=== PATIENT | female | born 1980 | race Caucasian/White ===

== ENCOUNTER 2016-08-06 18:10 | Emergency (ER) | payer OTHER ==
[~2016-08-06] VITALS: Ht 170.2 cm; Wt 89.9 kg
[2016-08-06 18:13] VITALS: Ht 170.2 cm; Wt 89.9 kg
[2016-08-06] MEDS ORDERED: IBUPROFEN 800 MG TAB PO ONE (19:00)
[2016-08-06] MEDS ORDERED: CIPROFLOXACIN 500 MG TAB PO ONE (19:00)
[2016-08-06 19:13] LABS: URINE BLOOD (Dip) POC 1+ (NEGATIVE)
[2016-08-06] MEDS ORDERED: ONDANSETRON (ODT) 4 MG TAB ODT STA (19:38)
[2016-08-06] MEDS ORDERED: HYDROCODONE/APAP (10/325) TAB PO ONE (20:00)
--- NOTE | 2016-08-06 21:20 | RADRPT ---
PROCEDURE: CT Abdomen and Pelvis without contrast. CLINICAL INDICATION: Left flank pain. TECHNIQUE: CT scan of the abdomen and pelvis was performed on a multidetector slice CT scanner. N o intravenous contrast material was utilized. Sagittal and coronal reformatted images were obtained from the axial source images. Images were reviewed on a high-resolution PACS workstation. Exam CTDl vol = 22 mGy and DLP = 1256 Gy-cm. COMPARISON: Right upper quadrant ultrasound 11/12/2012 FINDINGS: There to punctate nonobstructing calcifications in the lower pole of the right kidney. Kidneys are otherwise normal in appearance without hydronephrosis, mass or obstructing calculus. There is no pe rinephric collection. Ureters are of normal caliber and without evidence for an obstructing calculu s The urinary bladder is unremarkable. Uterus and ovaries are unremarkable. The liver is enlarged at 26.2 cm and diffusely hypodense/fatty. No intrahepatic lesions are identif ied. The gallbladder is normal in appearance. There is no definite biliary ductal dilation. There i s mild infiltration of fluid adjacent to the pancreatic tail. There are adjacent mesenteric lymph n odes measuring up to 7 mm in diameter.. The spleen is unremarkable.. There are no adrenal masses. The aorta is unremarkable. There is no obstruction or ileus. The appendix is well visualized and normal in size. There is no evidence for diverticulitis. There is no free fluid. Limited evaluation lung bases unremarkable. There are degenerative changes of the lower thoracic spine. IMPRESSION: 1. No evidence for obstructive uropathy. Punctate nonobstructing right renal calcifications. 2. Slightly indistinct pancreatic tail mild surrounding infiltration and adjacent mesenteric lymph nodes. Appearances consistent with acute pancreatitis. No evidence for a phlegmon or pseudocyst. 3. Enlarged fatty liver. RPTAT: [facility]VK .Jordi Goddard MD, Date Time Electronically viewed and signed by .Jordi Goddard MD, on 08/06/2016 21:19 .K/
[2016-08-06] MEDS ORDERED: HYDR-902 PO (21:26)
[2016-08-06] MEDS ORDERED: IBUP-1542 PO (21:26)
--- NOTE | 2016-08-06 21:37 | ERD ---
ER Documentation Chief Complaint Date/Time DATE: 08/06/16 TIME: 21:35 Chief Complaint BACK PAIN WITH URGENCY TO URINATE, DYSURIA X 2 DAYS HPI Patient is a 35-year-old female with diabetes who presents with left-sided back pain. She has left lower quadrant abdominal pain as well. She says that she is supposed to take metformin but she has not been on her medicines for diabetes for about 1 month. She says that she has the medicines at home she just thought that she was better and did not need to take them anymore. Upon review of the old medical records this is the patient's seventh visit to the ER since 2008. She does have a primary doctor. ROS All systems reviewed and are negative except as per history of present illness. Medications Home Meds Active Scripts Hydrocodone/Acetaminophen ([place] 10-325 Tablet) 1 Each Tablet, 1 TAB PO Q6H Y for PAIN, #7 TAB Prov:DANIEL BRIONES MD 08/06/16 Ibuprofen* (Motrin*) 600 Mg Tab, 600 MG PO Q6H Y for PAIN AND OR ELEVATED TEMP, #30 TAB Prov:DANIEL BRIONES MD 08/06/16 Reported Medications [None] No Conflict Check 10/30/10 Allergies Allergies: Coded Allergies: No Known Allergy (Verified Allergy, Mild, 01/26/10) PMhx/Soc Medical and Surgical Hx: pt denies Medical Hx, pt denies Surgical Hx History of Surgery: Yes () Anesthesia Reaction: No Hx Neurological Disorder: No Hx Respiratory Disorders: No Hx Cardiac Disorders: No Hx Psychiatric Problems: No Hx Miscellaneous Medical Probl: No Hx Alcohol Use: No Hx Substance Use: No Hx Tobacco Use: No Smoking Status: Never smoker FmHx Family History: No diabetes Physical Exam Vitals Vital Signs Date Time Temp Pulse Resp B/P Pulse Ox O2 Delivery O2 Flow Rate FiO2 08/06/16 18:13 97.5 99 18 133/71 99 Physical Exam Const: Mild distress secondary to pain Head: Atraumatic Eyes: Normal Conjunctiva ENT: Normal External Ears, Nose and Mouth. Neck: Full range of motion..~ No meningismus. Resp: Clear to auscultation bilaterally Cardio: Regular rate and rhythm, no murmurs Abd: Soft, left lower quadrant tenderness to palpation without rebound or guarding Skin: No petechiae or rashes Back: Left-sided flank pain Ext: No cyanosis, or edema Neur: Awake and alert Psych: Normal Mood and Affect Results 24 hrs Laboratory Tests Test 08/06/16 19:14 08/06/16 19:19 Bedside Urine Blood 1+ Bedside Urine Glucose (UA) Negative Bedside Urine Ketones (LAB) Negative Bedside Urine Leukocyte Esterase (L Negative Bedside Urine Nitrite (LAB) Negative Bedside Urine Protein (LAB) 1+ Bedside Urine pH (LAB) 5.5 Bedside Glucose 193mg/dL Current Medications Medications (Trade) Dose Ordered Sig/Ruth Route PRN Reason Start Time Stop Time Status Last Admin Dose Admin Ibuprofen (Motrin) 800 mg ONCE ONCE PO 08/06/16 19:00 08/06/16 19:01 DC 08/06/16 19:15 Ciprofloxacin (Cipro) 500 mg ONCE ONCE PO 08/06/16 19:00 08/06/16 19:01 DC 08/06/16 19:15 Acetaminophen/ Hydrocodone Bitart ([place] (10/325)) 1 tab ONCE ONCE PO 08/06/16 20:00 08/06/16 20:01 DC 08/06/16 19:46 Ondansetron HCl (Zofran Odt) 4 mg ONCE STAT ODT 08/06/16 19:38 08/06/16 19:39 DC 08/06/16 19:46 Procedures/MDM Accu-Chek is less than 200. Urinalysis shows no sign of infection. CT scan shows no surgical process per radiology. There is a potential pancreatitis but symptoms are not consistent with that. Smoking Cessation Therapy: Pt. was lectured for greater than 3 minutes on the health risks of continued smoking and the benefits of cessation. Patient is a 35-year-old female who presents with left lower quadrant abdominal pain and left-sided flank pain. Urinalysis shows no sign of infection. She is not and I doubt or ectopic . CT scan shows no surgical process although it shows some mild pancreatic inflammation. However at this time her symptoms are not consistent with pancreatitis and I doubt pancreatitis. I believe outpatient management is appropriate as there is no sign of kidney stone or pyelonephritis. There is no sign of bowel obstruction. The patient will need close follow-up with her primary doctor tomorrow for evaluation. She will be given a prescription for Gl[place] and ibuprofen. She can return sooner for any worsening symptoms. She was given a copy of her laboratory studies and CT scan report prior to discharge. I doubt diabetic ketoacidosis at this time as her sugar is less than 200. I did tell her that she needs to start taking her Metformin again however. Departure Diagnosis: Primary Impression: Flank pain Additional Impression: Back pain Back pain location: low back pain Chronicity: acute Back pain laterality: left Sciatica presence: without sciatica Qualified Code: M54.5 - Acute left- sided low back pain without sciatica Condition: Fair Patient Instructions: Flank Pain, Uncertain Cause Additional Instructions: Call your primary care doctor TOMORROW for an appointment during the next 1-2 days.See the doctor sooner or return here if your condition worsens before your appointment time. DANIEL BRIONES MD Aug 06, 2016 21:36
[2016-08-06 21:39] VITALS: BP 118/74; PULSE 99; RESP 18; TEMP 98.2
== END 2016-08-06 21:40 | disposition home or self-care (01) ==
LOC: FTE 18:10
DX: R10.32 Left lower quadrant pain (principal); M54.5 Low back pain; E11.9 Type 2 diabetes mellitus without complications; Z79.84 Long term (current) use of oral hypoglycemic drugs
CPT/HCPCS: 74176; 81003; 82962; Z7502; Z7610

== ENCOUNTER 2016-12-23 19:41 | Inpatient (IN) | payer OTHER ==
[~2016-12-23] VITALS: Ht 170.2 cm; Wt 105.6 kg
[~2016-12-23 19:41] MED LIST: HYDR-902 PO; IBUP-1542 PO
[2016-12-23 22:42] VITALS: BP 134/64; PULSE 85; RESP 18
[2016-12-23 23:00] VITALS: Ht 170.2 cm; Wt 105.6 kg
[2016-12-24] MEDS ORDERED: DEXTROSE 50% 50 ML SYRINGE IV PRN ×2 (00:30)
[2016-12-24] MEDS ORDERED: GLUCAGON 1 MG INJ IM PRN (00:30)
[2016-12-24] MEDS ORDERED: ACETAMINOPHEN 325 MG TAB PO PRN (00:30)
[2016-12-24] MEDS ORDERED: ONDANSETRON 4 MG INJ IV PRN (00:30)
[2016-12-24] MEDS ORDERED: SOD CHLORIDE 0.9% 1,000 ML IV SCH (00:30)
[2016-12-24] MEDS ORDERED: GLUCOSE GEL 15 GRAM TUBE PO PRN ×2 (00:30)
[2016-12-24] MEDS ORDERED: morphine 2 MG INJ IV PRN (00:30)
[2016-12-24] MEDS ORDERED: GLUCOSE GEL 15 GRAM TUBE BUCCAL PRN (00:30)
[2016-12-24] MEDS: SOD CHLORIDE 0.45% 1,000 ML IV SCH ×2 (00:46→22:15)
[2016-12-24] MEDS: morphine 2 MG INJ IV PRN ×3 (01:31→12:23)
[2016-12-24] MEDS: ACCU-CHEK XX SCH (02:00)
[2016-12-24 05:31] LABS: ADD SCAN DIFF NO
[2016-12-24] MEDS: PANTOPRAZOLE 40 MG INJ IV SCH (05:53)
[2016-12-24 05:59] LABS: BASOPHIL # 0.1 10^3/ul (0.0-0.1); BASOPHILS % 0.3 % (0.0-2.0); EOSINOPHILS # 0.1 10^3/ul (0.0-0.5); EOSINOPHILS % 0.6 % (0.0-7.0); HEMATOCRIT 35.8 % (37.0-47.0); HEMOGLOBIN 13.4 g/dl (12.0-16.0); LYMPHOCYTES # 3.3 10^3/ul (0.8-2.9); LYMPHOCYTES % 23.2 % (15.0-51.0); MEAN CORPUSCULAR HEMOGLOBIN 33.6 pg (29.0-33.0); MEAN CORPUSCULAR HGB CONC 37.4 g/dl (32.0-37.0); MEAN CORPUSCULAR VOLUME 89.7 fl (82.0-101.0); MEAN PLATELET VOLUME 12.7 fl (7.4-10.4); MONOCYTES % 7.1 % (0.0-11.0); NEUTROPHIL # 9.8 10^3/ul (1.6-7.5); NEUTROPHILS % 68.5 % (39.0-77.0); PLATELET COUNT 189 10^3/UL (140-415); RED BLOOD COUNT 3.99 10^6/ul (4.20-5.40); RED CELL DISTRIBUTION WIDTH 11.9 % (11.5-14.5); WHITE BLOOD COUNT 14.4 10^3/ul (4.8-10.8)
[2016-12-24 06:19] LABS: ALBUMIN 4.1 g/dl (3.3-4.9); ALBUMIN/GLOBULIN RATIO 1.46; BILIRUBIN,INDIRECT 1.8 mg/dl (0-1.1); BILIRUBIN,TOTAL 1.8 mg/dl (0.2-1.3); CREATININE 0.53 mg/dl (0.44-1.00); POTASSIUM 3.8 mmol/L (3.5-5.1); TOTAL PROTEIN 6.9 g/dl (6.1-8.1)
[2016-12-24 08:21] VITALS: BP 107/54; RESP 18
[2016-12-24] MEDS: NICOTINE (21 MG/24 HR) PATCH TRANSDERM SCH (08:27)
[2016-12-24] MEDS: INSULIN ASPART [NOVOLOG] 3 ML PEN SC SCH ×4 (09:09→21:00)
[2016-12-24 12:43] VITALS: BP 121/62; PULSE 83; RESP 16
--- NOTE | 2016-12-24 16:10 | HP ---
Date/Time of Note Date/Time of Note DATE: 12/24/16 TIME: 16:01 Assessment/Plan VTE Prophylaxis VTE Prophylaxis Intervention: ambulation Lines/Catheters IV Catheter Type (from [facility]): [facility] Urinary Cath still in place: No Assessment/Plan Chief Complaint/Hosp Course 1. Acute pancreatitis 2. Diabetes mellitus type II, uncontrolled 3. Morbid obesity 4. Nicotine dependence 5. Non compliance 6. HS high cholesterol 7. On CT Right 3 mm kidney stone Problems: Assessment/Plan 1. NPO, pain control 2. Continue iv therapy 3. Dr Weldon for Gi Consult 4. Dr Carr for high WBC HPI/ROS Admit Date/Time Admit Date/Time Dec 23, 2016 at 22:09 Hx of Present Illness On 12/23/2016 pt woke up with severe flank pain and abdominal pain. She vomited a bile. She was seen in [facility]. There CT scan was obtained. 12/24/2016 pt was transferred to [facility] covered by pt insurance . ROS Constitutional: fatigue Eyes: no complaints ENT: no complaints Respiratory: no complaints Cardiovascular: no complaints Gastrointestinal: pain (8/10 in left epigastial area.) Musculoskeletal: no complaints Skin: no complaints Neurologic: no complaints Endocrine: no complaints Lymphatic: no complaints Psychological: no complaints PMH/Family/Social Past Medical History Medical History: diabetes (pt is noncomliant with meds), high cholesterol (pt is non compliant), other (obesity) Past Surgical History Past Surgical Hx: other (C section 2000 and 2011) Family History Significant Family History: diabetes, hypertension Social History Alcohol Use: none Smoking Status: Current every day smoker Drug Use: none Exam/Review of Systems Vital Signs Vitals Vital Signs Date Time Temp Pulse Resp B/P Pulse Ox O2 Delivery O2 Flow Rate FiO2 12/24/16 12:43 99.2 83 16 121/62 95 Room Air Intake and Output 12/23/16 12/23/16 12/24/16 14:59 22:59 06:59 Intake Total 705 ml Balance 705 ml Exam Constitutional: alert, oriented Psych: nl mood/affect, no complaints Head: normocephalic Eyes: nl conjunctiva ENMT: nl external ears & nose Neck: non-tender, supple Respiratory: clear to auscultation, normal air movement Cardiovascular: regular rate and rhythm Gastrointestinal: ascites, bowel sounds (present), distended, firm, hepatomegaly, mass, nl liver, spleen, non-tender, other (pain in left epigastrial area), rebound or guarding, soft, splenomegaly, surgical scars, tender Genitourinary - Female: nl external genitalia Musculoskeletal: nl extremities to inspection Extremities: normal pulses Skin: nl turgor Lymph: nl lymph nodes Labs Result Diagram: 12/24/16 0453 12/24/16 0453 Medications Medications Current Medications Pantoprazole (Protonix Iv) 40 mg DAILY@06 IV Last administered on 12/24/16 05: 53; Admin Dose 40 MG; Start 12/24/16 at 06:00 Acetaminophen (Tylenol Tab) 650 mg Q6H PRN PO PAIN AND OR ELEVATED TEMP Last administered on 12/24/16 05:58; Admin Dose 650 MG; Start 12/24/16 at 00:30 Ondansetron HCl (Zofran Inj) 4 mg Q6 PRN IV NAUSEA AND/OR VOMITING; Start at 00:30 Nicotine (Nicoderm 21 Mg/ 24hr) 1 patch DAILY TRANSDERM Last administered on 08:27; Admin Dose 1 PATCH; Start 12/24/16 at 09:00 Diagnostic Test (Pha) (Accu-Chek) 1 ea 02 XX ; Start 12/24/16 at 02:00 Miscellaneous Information 1 ea NOTE XX ; Start 12/24/16 at 00:30 Glucose (Glutose) 15 gm Q15M PRN PO DECREASED GLUCOSE; Start 12/24/16 at 00:30 Glucose (Glutose) 22.5 gm Q15M PRN PO DECREASED GLUCOSE; Start 12/24/16 at 00:30 Dextrose (D50w Syringe) 25 ml Q15M PRN IV DECREASED GLUCOSE; Start 12/24/16 at 00:30 Dextrose (D50w Syringe) 50 ml Q15M PRN IV DECREASED GLUCOSE; Start 12/24/16 at 00:30 Glucagon (Glucagen) 1 mg Q15M PRN IM DECREASED GLUCOSE; Start 12/24/16 at 00:30 Glucose 15 gm 15 gm Q15M PRN BUCCAL DECREASED GLUCOSE; Start 12/24/16 at 00:30 Sodium Chloride (1/2 NS) 1,000 ml @ 50 mls/hr Q20H IV Last administered on 12/24 00:46; Admin Dose 50 MLS/HR; Start 12/24/16 at 00:30 Morphine Sulfate (morphine) 3 mg Q4H PRN IV pain; Start 12/24/16 at 17:00; Status ANGELINA OROSCO Dec 24, 2016 16:10
--- NOTE | 2016-12-24 17:01 | CONS ---
DATE OF ADMISSION: 12/23/2016 DATE OF CONSULTATION: 12/24/2016 TYPE OF CONSULTATION: Infectious disease. REASON FOR CONSULTATION: Antibiotic management. HISTORY OF PRESENT ILLNESS: Emmie Greene is a morbidly obese 36-year-old female who was transferred from [facility] to [facility] with abdominal pain radiating from the back to the abdom en. PAST PROBLEMS: Include: Adult-onset diabetes mellitus for which she takes metformin and glipizide. She also smokes about 6 cigarettes per day. Other problems include hypercholesterolemia and a 3 m m kidney stone. The patient was placed on n.p.o. PAST MEDICAL HISTORY: As outlined. PAST SURGICAL HISTORY: She had 2 C-sections and a tubal ligation. SOCIAL HISTORY: She is and has 2 children, 2 girls. Mother and father are alive. She has 2 brothers, 1 sister. ALLERGIES: NONE TO PENICILLIN, SULFA OR FOODS. MEDICATIONS: Per chart. REVIEW OF SYSTEMS: As per HPI. PHYSICAL EXAMINATION: GENERAL: The patient is a well-developed, well-nourished friendly but obese female, alert, responsive, in no acute distress. VITAL SIGNS: Stable. She is afebrile. SKIN: Without generalized rash. HEENT: Within normal limits. NECK: Supple. LYMPH NODES: None palpable. CHEST: Decreased breath sounds at the bases. HEART: Without murmur or gallop. ABDOMEN: Soft, distended, nontender, without organosplenomegaly or masses. EXTREMITIES: Without cyanosis, clubbing, or edema. RECTAL AND GENITAL: Deferred. NEUROLOGIC: No focal neurological abnormalities. ANCILLARY LABORATORY DATA: White count 14.4, H and H of 13.4 and 35.8, platelet count 189,000. BUN and creatinine is 7/0.453. A number of tests were done. She was given morphine sulfate. She is a febrile. For the time being, she is off antibiotic therapy. I will get 2 sets of blood cultures, u rinalysis and culture. She has a lipase of 220, amylase is 48, which is not consistent with pancrea titis. The patient has abdominal pain, but the etiology is not clear. As noted, the amylase and li pase were not elevated. We can observe a sudden increase, but for the time being, I am not sure wha t we are dealing. I am going to get 2 sets of blood cultures and urinalysis and culture. I will di ctate my findings to Dr. Stallworth. Dictated By: CUONG CORDOBA MD, JD/GRACE Conf#: [id number] DID#: [id number]
[2016-12-24] MEDS: morphine 4 MG/ML VIAL IV PRN ×2 (17:26→22:11)
[2016-12-24 19:00] VITALS: BP 126/61; RESP 18
[2016-12-25] MEDS: ACCU-CHEK XX SCH (02:00)
[2016-12-25 05:16] LABS: ADD SCAN DIFF NO
[2016-12-25 05:19] LABS: BASOPHILS % 0.3 % (0.0-2.0); EOSINOPHILS # 0.1 10^3/ul (0.0-0.5); EOSINOPHILS % 0.3 % (0.0-7.0); HEMATOCRIT 37.1 % (37.0-47.0); HEMOGLOBIN 12.9 g/dl (12.0-16.0); LYMPHOCYTES % 13.6 % (15.0-51.0); MEAN CORPUSCULAR HEMOGLOBIN 31.4 pg (29.0-33.0); MEAN CORPUSCULAR HGB CONC 34.8 g/dl (32.0-37.0); MEAN CORPUSCULAR VOLUME 90.3 fl (82.0-101.0); MEAN PLATELET VOLUME 12.8 fl (7.4-10.4); MONOCYTE # 1.4 10^3/ul (0.3-0.9); MONOCYTES % 9.3 % (0.0-11.0); NEUTROPHIL # 11.3 10^3/ul (1.6-7.5); PLATELET COUNT 175 10^3/UL (140-415); RED BLOOD COUNT 4.11 10^6/ul (4.20-5.40); RED CELL DISTRIBUTION WIDTH 11.9 % (11.5-14.5); WHITE BLOOD COUNT 14.8 10^3/ul (4.8-10.8)
[2016-12-25 05:42] LABS: CALCIUM 8.8 mg/dl (8.4-10.2); CREATININE 0.5 mg/dl (0.44-1.00); POTASSIUM 3.8 mmol/L (3.5-5.1)
[2016-12-25] MEDS: PANTOPRAZOLE 40 MG INJ IV SCH (07:33)
[2016-12-25 08:00] VITALS: BP 110/55; RESP 18
[2016-12-25] MEDS: SOD CHLORIDE 0.45% 1,000 ML IV SCH (08:12)
[2016-12-25] MEDS: NICOTINE (21 MG/24 HR) PATCH TRANSDERM SCH (08:14)
[2016-12-25] MEDS: INSULIN ASPART [NOVOLOG] 3 ML PEN SC SCH ×4 (08:44→21:00)
[2016-12-25 08:55] LABS: HDL CHOLESTEROL 32 mg/dl (34-82)
[2016-12-25 09:05] LABS: CHOLESTEROL 483 mg/dl (100-200)
[2016-12-25 09:37] LABS: TRIGLYCERIDES > 1575 mg/dl (0-149)
[2016-12-25] MEDS: morphine 4 MG/ML VIAL IV PRN ×3 (09:39→22:39)
--- NOTE | 2016-12-25 14:34 | PN ---
DATE: 12/25/2016 SUBJECTIVE: Patient is awake, feels better. Looks comfortable, still has mild pain in her left low er quadrant. VITAL SIGNS: T-max yesterday was 101.2, currently afebrile. WBC today 14.8. No shift, no bands. BUN 5, creatinine 0.50. ANTIMICROBIALS: Patient is off antibiotics. PHYSICAL EXAMINATION: GENERAL: This is a morbidly obese, middle-aged woman who is alert, in no distress. HEENT: Head atraumatic, normocephalic. Sclerae anicteric. Buccal mucosa dry. NECK: Supple, trachea midline. CHEST: Rise symmetrical. Breath sounds clear. HEART: S1, S2. ABDOMEN: Soft, bowel tones present. EXTREMITIES: Without cyanosis. ASSESSMENT: 1. Systemic inflammatory response syndrome. 2. Left lower quadrant and left flank pain, possibly urinary tract infection. 3. Morbid obesity. 4. Diabetes. 5. Tobacco use. PLAN: The patient is clinically stable. We are going to keep her on Rocephin. Repeat blood cultur es if she spikes fever and order urine culture. Dictated By: LILLIAN ALLRED CHIEF WRITER for CUONG CORDOBA MD NI/NTS Conf#: [id number] DID#: [id number]
--- NOTE | 2016-12-25 15:10 | PN ---
Date/Time of Note Date/Time of Note DATE: 12/25/16 TIME: 15:09 Assessment/Plan VTE Prophylaxis VTE Prophylaxis Intervention: SCD's Lines/Catheters [facility] Peripheral IV Urinary Cath still in place: No Assessment/Plan Chief Complaint/Hosp Course 1. Acute pancreatitis 2. Diabetes mellitus type II, uncontrolled 3. Morbid obesity 4. Nicotine dependence 5. Non compliance 6. HS high cholesterol 7. On CT Right 3 mm kidney stone Problems: Assessment/Plan 1. NPO, IV fluids 2. Pain control Subjective 24 Hr Interval Summary Constitutional: improved, no complaints Gastrointestinal: pain Genitourinary: no complaints Exam/Review of Systems Vital Signs Vitals Vital Signs Date Time Temp Pulse Resp B/P Pulse Ox O2 Delivery O2 Flow Rate FiO2 12/25/16 08:00 98.2 88 18 110/55 95 12/24/16 12:43 Room Air Intake and Output 12/24/16 12/24/16 12/25/16 15:00 23:00 07:00 Intake Total 1655 ml 1400 ml Output Total 900 ml Balance 1655 ml 500 ml Exam Constitutional: alert, oriented Gastrointestinal: soft Genitourinary - Female: CVA tenderness (neg kayli;aterally) Results Result Diagram: 12/25/16 0423 12/25/16 0423 Results 24 hrs Laboratory Tests Test 12/24/16 17:34 12/24/16 22:13 12/25/16 04:23 12/25/16 08:10 Bedside Glucose 160 162 White Blood Count 14.8 H Red Blood Count 4.11 L Hemoglobin 12.9 Hematocrit 37.1 Mean Corpuscular Volume 90.3 Mean Corpuscular Hemoglobin 31.4 Mean Corpuscular Hemoglobin Concent 34.8 Red Cell Distribution Width 11.9 Platelet Count 175 Mean Platelet Volume 12.8 H Neutrophils % 76.0 Lymphocytes % 13.6 L Monocytes % 9.3 Eosinophils % 0.3 Basophils % 0.3 Nucleated Red Blood Cells % 0.0 Neutrophils # 11.3 H Lymphocytes # 2.0 Monocytes # 1.4 H Eosinophils # 0.1 Basophils # 0.0 Nucleated Red Blood Cells # 0.0 Sodium Level 138 Potassium Level 3.8 Chloride Level 106 Carbon Dioxide Level 21 Anion Gap 15 Blood Urea Nitrogen 5 L Creatinine 0.50 Glucose Level 142 Calcium Level 8.8 Triglycerides Level > 1575 H Cholesterol Level 483 H LDL Cholesterol, Calculated HDL Cholesterol 32 L Cholesterol/HDL Ratio 15.0 Test 12/25/16 08:39 12/25/16 12:44 Bedside Glucose 147 131 Medications Medications Current Medications Pantoprazole (Protonix Iv) 40 mg DAILY@06 IV Last administered on 12/25/16 07: 33; Admin Dose 40 MG; Start 12/24/16 at 06:00 Acetaminophen (Tylenol Tab) 650 mg Q6H PRN PO PAIN AND OR ELEVATED TEMP Last administered on 12/24/16 05:58; Admin Dose 650 MG; Start 12/24/16 at 00:30 Ondansetron HCl (Zofran Inj) 4 mg Q6 PRN IV NAUSEA AND/OR VOMITING; Start at 00:30 Nicotine (Nicoderm 21 Mg/ 24hr) 1 patch DAILY TRANSDERM Last administered on 08:14; Admin Dose 1 PATCH; Start 12/24/16 at 09:00 Diagnostic Test (Pha) (Accu-Chek) 1 ea 02 XX ; Start 12/24/16 at 02:00 Miscellaneous Information 1 ea NOTE XX ; Start 12/24/16 at 00:30 Glucose (Glutose) 15 gm Q15M PRN PO DECREASED GLUCOSE; Start 12/24/16 at 00:30 Glucose (Glutose) 22.5 gm Q15M PRN PO DECREASED GLUCOSE; Start 12/24/16 at 00:30 Dextrose (D50w Syringe) 25 ml Q15M PRN IV DECREASED GLUCOSE; Start 12/24/16 at 00:30 Dextrose (D50w Syringe) 50 ml Q15M PRN IV DECREASED GLUCOSE; Start 12/24/16 at 00:30 Glucagon (Glucagen) 1 mg Q15M PRN IM DECREASED GLUCOSE; Start 12/24/16 at 00:30 Glucose 15 gm 15 gm Q15M PRN BUCCAL DECREASED GLUCOSE; Start 12/24/16 at 00:30 Sodium Chloride (1/2 NS) 1,000 ml @ 50 mls/hr Q20H IV Last administered on 12/25 08:12; Admin Dose 50 MLS/HR; Start 12/24/16 at 00:30 Morphine Sulfate 3 mg 3 mg Q4H PRN IV pain Last administered on 12/25/16 09:39 ; Admin Dose 3 MG; Start 12/24/16 at 16:00 Ceftriaxone Sodium (Rocephin) 50 ml @ 100 mls/hr Q24H IVPB ; Start 12/25/16 at 14:30 Gemfibrozil (Lopid) 600 mg BID PO ; Start 12/25/16 at 21:00 ANGELINA BARBOZA Dec 25, 2016 15:10
[2016-12-25] MEDS: CEFTRIAXONE 1 GM/50 ML (PMX) 50 ML IVPB SCH (15:15)
[2016-12-25 21:12] VITALS: BP 115/72; RESP 20
[2016-12-25] MEDS: GEMFIBROZIL 600 MG TAB PO SCH (21:28)
[2016-12-26] MEDS: ACCU-CHEK XX SCH (02:00)
[2016-12-26] MEDS: morphine 4 MG/ML VIAL IV PRN ×2 (04:52→15:27)
[2016-12-26 05:19] LABS: ADD SCAN DIFF NO
[2016-12-26 05:28] LABS: BASOPHIL # 0.1 10^3/ul (0.0-0.1); BASOPHILS % 0.4 % (0.0-2.0); EOSINOPHILS # 0.1 10^3/ul (0.0-0.5); EOSINOPHILS % 1.2 % (0.0-7.0); HEMATOCRIT 37.2 % (37.0-47.0); HEMOGLOBIN 12.6 g/dl (12.0-16.0); LYMPHOCYTES # 3.1 10^3/ul (0.8-2.9); LYMPHOCYTES % 26.2 % (15.0-51.0); MEAN CORPUSCULAR HEMOGLOBIN 30.7 pg (29.0-33.0); MEAN CORPUSCULAR HGB CONC 33.9 g/dl (32.0-37.0); MEAN CORPUSCULAR VOLUME 90.5 fl (82.0-101.0); MEAN PLATELET VOLUME 12.3 fl (7.4-10.4); MONOCYTE # 1.2 10^3/ul (0.3-0.9); MONOCYTES % 10.3 % (0.0-11.0); NEUTROPHIL # 7.4 10^3/ul (1.6-7.5); NEUTROPHILS % 61.4 % (39.0-77.0); PLATELET COUNT 196 10^3/UL (140-415); RED BLOOD COUNT 4.11 10^6/ul (4.20-5.40)
[2016-12-26 05:56] LABS: ALBUMIN 4.3 g/dl (3.3-4.9); ALBUMIN/GLOBULIN RATIO 1.3; BILIRUBIN,INDIRECT 1.3 mg/dl (0-1.1); BILIRUBIN,TOTAL 1.3 mg/dl (0.2-1.3); CALCIUM 8.9 mg/dl (8.4-10.2); CREATININE 0.57 mg/dl (0.44-1.00); POTASSIUM 3.7 mmol/L (3.5-5.1); TOTAL PROTEIN 7.6 g/dl (6.1-8.1)
[2016-12-26 05:58] LABS: AMYLASE 33 U/L (11-123)
[2016-12-26] MEDS: PANTOPRAZOLE 40 MG INJ IV SCH (06:23)
[2016-12-26 07:41] VITALS: BP 117/57; RESP 18
[2016-12-26] MEDS: INSULIN ASPART [NOVOLOG] 3 ML PEN SC SCH ×2 (07:50→11:40)
[2016-12-26] MEDS: GEMFIBROZIL 600 MG TAB PO SCH (08:28)
[2016-12-26] MEDS: NICOTINE (21 MG/24 HR) PATCH TRANSDERM SCH (08:29)
[2016-12-26] MEDS: SOD CHLORIDE 0.45% 1,000 ML IV SCH (12:30)
--- NOTE | 2016-12-26 13:41 | PN ---
Date/Time of Note Date/Time of Note DATE: 12/26/16 TIME: 13:40 Assessment/Plan VTE Prophylaxis VTE Prophylaxis Intervention: other Lines/Catheters IV Catheter Type (from Nrs): Peripheral IV Urinary Cath still in place: No Assessment/Plan Chief Complaint/Hosp Course DYSLIPEDMDEMIA BACTEREMIA PLAN PER ID Problems: Subjective 24 Hr Interval Summary Cardiovascular: no complaints Gastrointestinal: no complaints Genitourinary: no complaints Exam/Review of Systems Vital Signs Vitals Vital Signs Date Time Temp Pulse Resp B/P Pulse Ox O2 Delivery O2 Flow Rate FiO2 12/26/16 07:41 98.6 80 18 117/57 95 12/24/16 12:43 Room Air Intake and Output 12/25/16 12/25/16 12/26/16 15:00 23:00 07:00 Intake Total 1520 ml 450 ml Balance 1520 ml 450 ml Exam Neck: supple Respiratory: clear to auscultation Cardiovascular: regular rate and rhythm Gastrointestinal: soft Musculoskeletal: nl extremities to inspection Results Result Diagram: 12/26/16 0430 12/26/16 0430 Results 24 hrs Laboratory Tests Test 12/25/16 17:34 12/25/16 21:29 12/26/16 04:30 12/26/16 08:27 Bedside Glucose 117 129 129 White Blood Count 12.0 H Red Blood Count 4.11 L Hemoglobin 12.6 Hematocrit 37.2 Mean Corpuscular Volume 90.5 Mean Corpuscular Hemoglobin 30.7 Mean Corpuscular Hemoglobin Concent 33.9 Red Cell Distribution Width 12.0 Platelet Count 196 Mean Platelet Volume 12.3 H Neutrophils % 61.4 Lymphocytes % 26.2 Monocytes % 10.3 Eosinophils % 1.2 Basophils % 0.4 Nucleated Red Blood Cells % 0.0 Neutrophils # 7.4 Lymphocytes # 3.1 H Monocytes # 1.2 H Eosinophils # 0.1 Basophils # 0.1 Nucleated Red Blood Cells # 0.0 Sodium Level 140 Potassium Level 3.7 Chloride Level 106 Carbon Dioxide Level 22 Anion Gap 16 Blood Urea Nitrogen 10 Creatinine 0.57 Glucose Level 98 # Calcium Level 8.9 Total Bilirubin 1.3 Direct Bilirubin 0.00 Indirect Bilirubin 1.3 H Aspartate Amino Transf (AST/SGOT) 24 Alanine Aminotransferase (ALT/SGPT) 45 Alkaline Phosphatase 72 Total Protein 7.6 Albumin 4.3 Globulin 3.30 H Albumin/Globulin Ratio 1.30 Amylase Level 33 Lipase 98 Test 12/26/16 12:49 Bedside Glucose 117 Medications Medications Current Medications Pantoprazole (Protonix Iv) 40 mg DAILY@06 IV Last administered on 12/26/16 06: 23; Admin Dose 40 MG; Start 12/24/16 at 06:00 Acetaminophen (Tylenol Tab) 650 mg Q6H PRN PO PAIN AND OR ELEVATED TEMP Last administered on 12/24/16 05:58; Admin Dose 650 MG; Start 12/24/16 at 00:30 Ondansetron HCl (Zofran Inj) 4 mg Q6 PRN IV NAUSEA AND/OR VOMITING; Start at 00:30 Nicotine (Nicoderm 21 Mg/ 24hr) 1 patch DAILY TRANSDERM Last administered on 08:29; Admin Dose 1 PATCH; Start 12/24/16 at 09:00 Diagnostic Test (Pha) (Accu-Chek) 1 ea 02 XX ; Start 12/24/16 at 02:00 Miscellaneous Information 1 ea NOTE XX ; Start 12/24/16 at 00:30 Glucose (Glutose) 15 gm Q15M PRN PO DECREASED GLUCOSE; Start 12/24/16 at 00:30 Glucose (Glutose) 22.5 gm Q15M PRN PO DECREASED GLUCOSE; Start 12/24/16 at 00:30 Dextrose (D50w Syringe) 25 ml Q15M PRN IV DECREASED GLUCOSE; Start 12/24/16 at 00:30 Dextrose (D50w Syringe) 50 ml Q15M PRN IV DECREASED GLUCOSE; Start 12/24/16 at 00:30 Glucagon (Glucagen) 1 mg Q15M PRN IM DECREASED GLUCOSE; Start 12/24/16 at 00:30 Glucose 15 gm 15 gm Q15M PRN BUCCAL DECREASED GLUCOSE; Start 12/24/16 at 00:30 Sodium Chloride (1/2 NS) 1,000 ml @ 50 mls/hr Q20H IV Last administered on 12/25 08:12; Admin Dose 50 MLS/HR; Start 12/24/16 at 00:30 Morphine Sulfate 3 mg 3 mg Q4H PRN IV pain Last administered on 12/26/16 04:52 ; Admin Dose 3 MG; Start 12/24/16 at 16:00 Ceftriaxone Sodium (Rocephin) 50 ml @ 100 mls/hr Q24H IVPB Last administered on 12/25/16 15:15; Admin Dose 100 MLS/HR; Start 12/25/16 at 14:30 Gemfibrozil (Lopid) 600 mg BID PO Last administered on 12/26/16 08:28; Admin Dose 600 MG; Start 12/25/16 at 21:00 SEAN LARES MD Dec 26, 2016 13:41
--- NOTE | 2016-12-26 13:42 | PDOCDIS ---
Discharge Instructions CONDITION Patient Condition: Stable HOME CARE INSTRUCTIONS: Special Diet: Clear liquid diet ACTIVITY: Activity Restrictions: Slowly Increase Activity FOLLOW UP/APPOINTMENTS Appointments F/U DR BARNARD 1 WK SEE OWN PCP [address] [facility]OWERY 1 WKS SEAN LARES MD Dec 26, 2016 13:42
[2016-12-26] MEDS ORDERED: PANT40TA3 PO (13:45)
[2016-12-26] MEDS ORDERED: CIPR500T4 PO (13:45)
[2016-12-26] MEDS ORDERED: GEMF600T60 PO (13:45)
--- NOTE | 2016-12-26 13:47 | PDOCDIS ---
Discharge Instructions CONDITION Patient Condition: Stable HOME CARE INSTRUCTIONS: Special Diet: Clear liquid diet ACTIVITY: Activity Restrictions: Slowly Increase Activity FOLLOW UP/APPOINTMENTS Appointments [facility] BY OWN PCP 1 WK SEAN LARES MD Dec 26, 2016 13:46
--- NOTE | 2016-12-26 13:49 | PN ---
Date/Time of Note Date/Time of Note DATE: 12/26/16 TIME: 13:47 Assessment/Plan VTE Prophylaxis VTE Prophylaxis Intervention: other Lines/Catheters IV Catheter Type (from Nrs): Peripheral IV Urinary Cath still in place: No Assessment/Plan Chief Complaint/Hosp Course DYSLIPEDMDEMIA BACTEREMIA PLAN PER ID Problems: Subjective 24 Hr Interval Summary Cardiovascular: no complaints Gastrointestinal: no complaints Genitourinary: no complaints Exam/Review of Systems Vital Signs Vitals Vital Signs Date Time Temp Pulse Resp B/P Pulse Ox O2 Delivery O2 Flow Rate FiO2 12/26/16 07:41 98.6 80 18 117/57 95 12/24/16 12:43 Room Air Intake and Output 12/25/16 12/25/16 12/26/16 15:00 23:00 07:00 Intake Total 1520 ml 450 ml Balance 1520 ml 450 ml Exam Respiratory: clear to auscultation Cardiovascular: regular rate and rhythm Gastrointestinal: soft Results Result Diagram: 12/26/16 0430 12/26/16 0430 Results 24 hrs Laboratory Tests Test 12/25/16 17:34 12/25/16 21:29 12/26/16 04:30 12/26/16 08:27 Bedside Glucose 117 129 129 White Blood Count 12.0 H Red Blood Count 4.11 L Hemoglobin 12.6 Hematocrit 37.2 Mean Corpuscular Volume 90.5 Mean Corpuscular Hemoglobin 30.7 Mean Corpuscular Hemoglobin Concent 33.9 Red Cell Distribution Width 12.0 Platelet Count 196 Mean Platelet Volume 12.3 H Neutrophils % 61.4 Lymphocytes % 26.2 Monocytes % 10.3 Eosinophils % 1.2 Basophils % 0.4 Nucleated Red Blood Cells % 0.0 Neutrophils # 7.4 Lymphocytes # 3.1 H Monocytes # 1.2 H Eosinophils # 0.1 Basophils # 0.1 Nucleated Red Blood Cells # 0.0 Sodium Level 140 Potassium Level 3.7 Chloride Level 106 Carbon Dioxide Level 22 Anion Gap 16 Blood Urea Nitrogen 10 Creatinine 0.57 Glucose Level 98 # Calcium Level 8.9 Total Bilirubin 1.3 Direct Bilirubin 0.00 Indirect Bilirubin 1.3 H Aspartate Amino Transf (AST/SGOT) 24 Alanine Aminotransferase (ALT/SGPT) 45 Alkaline Phosphatase 72 Total Protein 7.6 Albumin 4.3 Globulin 3.30 H Albumin/Globulin Ratio 1.30 Amylase Level 33 Lipase 98 Test 12/26/16 12:49 Bedside Glucose 117 Medications Medications Current Medications Pantoprazole (Protonix Iv) 40 mg DAILY@06 IV Last administered on 12/26/16 06: 23; Admin Dose 40 MG; Start 12/24/16 at 06:00 Acetaminophen (Tylenol Tab) 650 mg Q6H PRN PO PAIN AND OR ELEVATED TEMP Last administered on 12/24/16 05:58; Admin Dose 650 MG; Start 12/24/16 at 00:30 Ondansetron HCl (Zofran Inj) 4 mg Q6 PRN IV NAUSEA AND/OR VOMITING; Start at 00:30 Nicotine (Nicoderm 21 Mg/ 24hr) 1 patch DAILY TRANSDERM Last administered on 08:29; Admin Dose 1 PATCH; Start 12/24/16 at 09:00 Diagnostic Test (Pha) (Accu-Chek) 1 ea 02 XX ; Start 12/24/16 at 02:00 Miscellaneous Information 1 ea NOTE XX ; Start 12/24/16 at 00:30 Glucose (Glutose) 15 gm Q15M PRN PO DECREASED GLUCOSE; Start 12/24/16 at 00:30 Glucose (Glutose) 22.5 gm Q15M PRN PO DECREASED GLUCOSE; Start 12/24/16 at 00:30 Dextrose (D50w Syringe) 25 ml Q15M PRN IV DECREASED GLUCOSE; Start 12/24/16 at 00:30 Dextrose (D50w Syringe) 50 ml Q15M PRN IV DECREASED GLUCOSE; Start 12/24/16 at 00:30 Glucagon (Glucagen) 1 mg Q15M PRN IM DECREASED GLUCOSE; Start 12/24/16 at 00:30 Glucose 15 gm 15 gm Q15M PRN BUCCAL DECREASED GLUCOSE; Start 12/24/16 at 00:30 Sodium Chloride (1/2 NS) 1,000 ml @ 50 mls/hr Q20H IV Last administered on 12/25 08:12; Admin Dose 50 MLS/HR; Start 12/24/16 at 00:30 Morphine Sulfate 3 mg 3 mg Q4H PRN IV pain Last administered on 12/26/16 04:52 ; Admin Dose 3 MG; Start 12/24/16 at 16:00 Ceftriaxone Sodium (Rocephin) 50 ml @ 100 mls/hr Q24H IVPB Last administered on 12/25/16 15:15; Admin Dose 100 MLS/HR; Start 12/25/16 at 14:30 Gemfibrozil (Lopid) 600 mg BID PO Last administered on 12/26/16 08:28; Admin Dose 600 MG; Start 12/25/16 at 21:00 SEAN LARES MD Dec 26, 2016 13:49
[2016-12-26] MEDS: CEFTRIAXONE 1 GM/50 ML (PMX) 50 ML IVPB SCH (14:22)
--- NOTE | 2016-12-26 14:28 | CONS ---
Date/Time of Note Date/Time of Note DATE: 12/26/16 TIME: 14:27 Assessment/Plan Assessment/Plan Chief Complaint/Hosp Course SUBJECTIVE: Patient is awake, feels better, no fevers, LLQ pain improved PHYSICAL EXAMINATION: GENERAL: This is a morbidly obese, middle-aged woman who is alert, in no distress. HEENT: Head atraumatic, normocephalic. Sclerae anicteric. Buccal mucosa dry. NECK: Supple, trachea midline. CHEST: Rise symmetrical. Breath sounds clear. HEART: S1, S2. ABDOMEN: Soft, bowel tones present. EXTREMITIES: Without cyanosis. ASSESSMENT: 1. Systemic inflammatory response syndrome. 2. Left lower quadrant and left flank pain, possibly urinary tract infection. 3. Morbid obesity. 4. Diabetes. 5. Tobacco use. PLAN: The patient is doing better, pending urine cx, anticipate dc on oral Cipro, f/u with PMD DW pt/RN Problems: Consultation Date/Type/Reason Admit Date/Time Dec 23, 2016 at 22:09 Initial Consult Date Type of Consultation: ID Exam/Review of Systems Vital Signs Vitals Vital Signs Date Time Temp Pulse Resp B/P Pulse Ox O2 Delivery O2 Flow Rate FiO2 12/26/16 07:41 98.6 80 18 117/57 95 12/24/16 12:43 Room Air Intake and Output 12/25/16 12/25/16 12/26/16 15:00 23:00 07:00 Intake Total 1520 ml 450 ml Balance 1520 ml 450 ml Results Result Diagram: 12/26/16 0430 12/26/16 0430 Results 24 hrs Laboratory Tests Test 12/25/16 17:34 12/25/16 21:29 12/26/16 04:30 12/26/16 08:27 Bedside Glucose 117 129 129 White Blood Count 12.0 H Red Blood Count 4.11 L Hemoglobin 12.6 Hematocrit 37.2 Mean Corpuscular Volume 90.5 Mean Corpuscular Hemoglobin 30.7 Mean Corpuscular Hemoglobin Concent 33.9 Red Cell Distribution Width 12.0 Platelet Count 196 Mean Platelet Volume 12.3 H Neutrophils % 61.4 Lymphocytes % 26.2 Monocytes % 10.3 Eosinophils % 1.2 Basophils % 0.4 Nucleated Red Blood Cells % 0.0 Neutrophils # 7.4 Lymphocytes # 3.1 H Monocytes # 1.2 H Eosinophils # 0.1 Basophils # 0.1 Nucleated Red Blood Cells # 0.0 Sodium Level 140 Potassium Level 3.7 Chloride Level 106 Carbon Dioxide Level 22 Anion Gap 16 Blood Urea Nitrogen 10 Creatinine 0.57 Glucose Level 98 # Calcium Level 8.9 Total Bilirubin 1.3 Direct Bilirubin 0.00 Indirect Bilirubin 1.3 H Aspartate Amino Transf (AST/SGOT) 24 Alanine Aminotransferase (ALT/SGPT) 45 Alkaline Phosphatase 72 Total Protein 7.6 Albumin 4.3 Globulin 3.30 H Albumin/Globulin Ratio 1.30 Amylase Level 33 Lipase 98 Test 12/26/16 12:49 Bedside Glucose 117 Medications Medications Current Medications Pantoprazole (Protonix Iv) 40 mg DAILY@06 IV Last administered on 12/26/16 06: 23; Admin Dose 40 MG; Start 12/24/16 at 06:00 Acetaminophen (Tylenol Tab) 650 mg Q6H PRN PO PAIN AND OR ELEVATED TEMP Last administered on 12/24/16 05:58; Admin Dose 650 MG; Start 12/24/16 at 00:30 Ondansetron HCl (Zofran Inj) 4 mg Q6 PRN IV NAUSEA AND/OR VOMITING; Start at 00:30 Nicotine (Nicoderm 21 Mg/ 24hr) 1 patch DAILY TRANSDERM Last administered on 08:29; Admin Dose 1 PATCH; Start 12/24/16 at 09:00 Diagnostic Test (Pha) (Accu-Chek) 1 ea 02 XX ; Start 12/24/16 at 02:00 Miscellaneous Information 1 ea NOTE XX ; Start 12/24/16 at 00:30 Glucose (Glutose) 15 gm Q15M PRN PO DECREASED GLUCOSE; Start 12/24/16 at 00:30 Glucose (Glutose) 22.5 gm Q15M PRN PO DECREASED GLUCOSE; Start 12/24/16 at 00:30 Dextrose (D50w Syringe) 25 ml Q15M PRN IV DECREASED GLUCOSE; Start 12/24/16 at 00:30 Dextrose (D50w Syringe) 50 ml Q15M PRN IV DECREASED GLUCOSE; Start 12/24/16 at 00:30 Glucagon (Glucagen) 1 mg Q15M PRN IM DECREASED GLUCOSE; Start 12/24/16 at 00:30 Glucose 15 gm 15 gm Q15M PRN BUCCAL DECREASED GLUCOSE; Start 12/24/16 at 00:30 Sodium Chloride (1/2 NS) 1,000 ml @ 50 mls/hr Q20H IV Last administered on 12/25 08:12; Admin Dose 50 MLS/HR; Start 12/24/16 at 00:30 Morphine Sulfate 3 mg 3 mg Q4H PRN IV pain Last administered on 12/26/16 04:52 ; Admin Dose 3 MG; Start 12/24/16 at 16:00 Ceftriaxone Sodium (Rocephin) 50 ml @ 100 mls/hr Q24H IVPB Last administered on 12/26/16 14:22; Admin Dose 100 MLS/HR; Start 12/25/16 at 14:30 Gemfibrozil (Lopid) 600 mg BID PO Last administered on 12/26/16 08:28; Admin Dose 600 MG; Start 12/25/16 at 21:00 LILLIAN ALLRED NP Dec 26, 2016 14:28
--- NOTE | 2016-12-26 18:39 | CONS ---
DATE OF ADMISSION: 12/23/2016 DATE OF CONSULTATION: HISTORY OF PRESENT ILLNESS: A 36-year-old female with a history of diabetes mellitus admitted to [facility] for abdominal pain, had a CAT scan done that found pancreatitis and for insurance purpose patient was transferred to this facility. Now the patient's pain is reducible to almost 1%. No na usea, no vomiting, no chest pain, no shortness of breath. PAST MEDICAL HISTORY: Diabetes mellitus type 2, C-sections. SOCIAL HISTORY: She smokes cigarettes every day. No alcohol, once in a year. ALLERGIES: NONE. REVIEW OF SYSTEMS: Negative. PHYSICAL EXAMINATION VITAL SIGNS: Stable. CARDIOVASCULAR: No murmur, gallop or click. LUNGS: Clear. ABDOMEN: Benign. EXTREMITIES: No edema. CENTRAL NERVOUS SYSTEM: Grossly within normal limits. IMPRESSION: 1. Pancreatitis secondary to hypertriglyceridemia. 2. Obesity. 3. Diabetes mellitus. PLAN: The patient needs to lose weight. Continue Lopid, bring the triglyceride level to less than 300 and a low fat diet. Since the patient has no pain and able to tolerate feeding, it is okay to d ischarge the patient home and follow up with the primary MD. Dictated By: NICOLE DIAZ/GRACE Conf#: [id number] DID#: [id number]
--- NOTE | 2016-12-27 19:17 | QN ---
Documentation Comment [id number] SEAN LARES MD Dec 27, 2016 19:17
--- NOTE | 2016-12-27 21:48 | DS ---
DATE OF ADMISSION: 12/23/2016 DATE OF DISCHARGE: 12/26/2016 HOSPITAL COURSE: The patient was admitted with abdominal pain, was seen by Dr. Weldon in consultati on. The patient has dyslipidemia. The patient also was seen by Dr. Griffith in consultation for leuk ocytosis. The patient's symptoms are resolving. The patient is eating. The patient had dyslipidem ia. The patient started on antilipid medication. Further workup as an outpatient. DISCHARGE DIAGNOSES: 1. Pancreatitis. 2. The patient has leukocytosis. 3. Fatty liver. 4. Diabetes mellitus. 5. Obesity. 6. The patient has possible urinary tract infection. DISCHARGE MEDICATIONS: The patient's discharge medications to continue on: 1. Cipro. 2. Lopid. 3. Protonix. FOLLOWUP: The patient to follow up with PCP, Dr. Weldon as an outpatient. DIET: Low fat diet. DISPOSITION: The patient is stable at the time of discharge. Dictated By: SEAN SIMS/NTS Conf#: [id number] DID#: [id number]
== END 2016-12-26 16:40 | disposition home or self-care (01) | DRG 439 ==
LOC: MS1 22:09
PROVIDERS: ADMIT Internal Medicine Nephrology; ATTEND Internal Medicine Nephrology
DX: K85.90 Acute pancreatitis without necrosis or infection, unspecified (principal); N39.0 Urinary tract infection, site not specified; K76.0 Fatty (change of) liver, not elsewhere classified; E66.01 Morbid (severe) obesity due to excess calories; Z68.36 Body mass index [BMI] 36.0-36.9, adult; Z91.19 Patient's noncompliance with other medical treatment and regimen; E78.00 Pure hypercholesterolemia, unspecified; N20.0 Calculus of kidney; Z91.14 Patient's other noncompliance with medication regimen; F17.210 Nicotine dependence, cigarettes, uncomplicated; I10 Essential (primary) hypertension; Z79.84 Long term (current) use of oral hypoglycemic drugs; E78.1 Pure hyperglyceridemia
CPT/HCPCS: 80048; 80053; 80061; 82150; 82962; 83690; 85025; 87040; 87086; C9113; J0696; J1815; J2270; J7030

== ENCOUNTER 2017-08-20 12:18 | Inpatient (IN) | END 2017-08-30 15:45 | disposition home or self-care (01) | DRG 439 ==

== ENCOUNTER 2017-08-31 08:32 | Emergency (ER) | END 2017-08-31 10:27 | disposition home or self-care (01) ==

== ENCOUNTER 2017-09-01 07:14 | Emergency (ER) | END 2017-09-01 12:05 | disposition home or self-care (01) ==

== ENCOUNTER → 2017-09-08 | Outpatient (CLI) | END | disposition home or self-care (01) ==

== ENCOUNTER 2017-10-11 14:50 | Observation (INO) | END 2017-10-14 14:20 | disposition home or self-care (01) ==

== ENCOUNTER 2017-12-11 00:39 | Emergency (ER) | END 2017-12-11 04:00 | disposition home or self-care (01) ==

== ENCOUNTER 2018-03-15 18:46 | Emergency (ER) | END 2018-03-15 21:59 | disposition home or self-care (01) ==

== ENCOUNTER 2018-04-20 10:15 | Emergency (ER) | END 2018-04-20 12:17 | disposition home or self-care (01) ==

== ENCOUNTER 2018-05-02 12:10 | Emergency (ER) | END 2018-05-02 17:40 | disposition home or self-care (01) ==

== ENCOUNTER 2018-07-03 09:16 | Emergency (ER) | END 2018-07-03 13:33 | disposition home or self-care (01) ==

== ENCOUNTER 2018-07-03 20:58 | Emergency (ER) | END 2018-07-04 00:27 | disposition home or self-care (01) ==

== ENCOUNTER 2018-07-17 20:39 | Emergency (ER) | payer OTHER ==
[~2018-07-17] VITALS: Ht 170.2 cm; Wt 103.1 kg
[~2018-07-17 20:39] MED LIST changes: +ACET500C5 PO; +CEPH-443 PO; +FAMO-96 PO; +GEMF600T4 PO; +HC30CR25 TOP; +HYDR-4011 PO; -HYDR-902 PO; +METF100010 PO; +NAPR-985 PO; +ONDA4TAB14 PO; +SULF1TAB31 PO; +TRAM50TA2 PO
[2018-07-17 20:42] VITALS: BP 111/68; PULSE 104; RESP 20; Ht 170.2 cm; Wt 103.1 kg
[2018-07-17] MEDS ORDERED: HYDROCODONE/APAP (10/325) TAB PO ONE (21:00)
--- NOTE | 2018-07-17 21:09 | ERD ---
ER Documentation Chief Complaint Chief Complaint localize redness/painful/swelling right inner thigh since yesterday HPI This is a 37-year-old female who presents emergency department with complaints of redness and swelling to her right inner thigh started yesterday. LMP: Stated it was last month. A1 M1. Denies headache, head injury, loss of consciousness, dizziness, neck pain, neck stiffness, throat pain, difficulty swallowing, difficulty breathing lying flat, shoulder pain, chest pain, back pain, abdominal pain, nausea, vomiting, constipation, diarrhea, urinary symptoms, or possibility being , loss of bowel and bladder control, trauma, injury, falls, difficulty walking due to pain, numbness or tingling sensation, calf pain, recent travel, recent major surgery in the last 3 weeks, calf pain, recent long travel, recent exposure to any illness, recent antibiotic use in the last 3 months, fever, chills, seizures. Past medical history: Type 2 diabetes. Medication: Gemfibrozil. Metformin. Surgical history: x2. Social: Denies smoking, use of alcoholic beverages, use of illegal drugs. ROS All systems reviewed and are negative except as per history of present illness. Medications Home Meds Active Scripts Hydrocodone/Acetaminophen ([place] 10-325 Tablet) 1 Each Tablet, 1 TAB PO Q6H PRN for SEVERE PAIN LEVEL 7-10, #7 TAB Prov:PASILAGARCÍA JO F 07/17/18 Ibuprofen* (Motrin*) 800 Mg Tab, 800 MG PO Q6H PRN for PAIN LEVEL 1-5, #30 TAB Prov:PASILABANDAGOAR F 07/17/18 Sulfamethoxazole/Trimethoprim* (Bactrim Ds* Tablet) 1 Each Tablet, 1 TAB PO BID for 7 Days, #14 TAB Prov:PASILABANDAGOAR F 07/17/18 Cephalexin* (Keflex*) 500 Mg Capsule, 500 MG PO TID for 7 Days, CAP Prov:PASILABAN,DAGOAR F 07/17/18 Ondansetron (Ondansetron Odt) 4 Mg Tab.rapdis, 4 MG PO Q6H PRN for NAUSEA AND/OR VOMITING, #10 TAB Prov:BRADLEY LORENZO PA-C 07/03/18 Hydrocodone/Acetaminophen ([place] 5-325 Tablet) 1 Each Tablet, 1 TAB PO Q6H PRN for PAIN, #7 TAB Prov:BRADLEY LORENZOC 07/03/18 Ondansetron (Ondansetron Odt) 4 Mg Tab.rapdis, 4 MG PO Q6H PRN for NAUSEA AND/OR VOMITING, #10 TAB Prov:ELPIDIO ANN PA-C 05/02/18 Famotidine* (Pepcid*) 20 Mg Tablet, 20 MG PO BID for 4 Days, #30 TAB Prov:ELPIDIO ANN PA-C 05/02/18 Hydrocodone/Acetaminophen ([place] 5-325 Tablet) 1 Each Tablet, 1 TAB PO Q6H PRN for PAIN, #7 TAB Prov:ELPIDIO ANN PA-C 05/02/18 Naproxen* (Naprosyn*) 500 Mg Tablet, 500 MG PO BID PRN for PAIN AND/OR INFLAMMATION, #30 TAB Prov:ELPIDIO ANN PA-C 04/20/18 Hydrocortisone* Topical (Hydrocortisone* Topical) 2.5%-28.3 Gm Cream..g., 1 APPLIC TOP BID, #1 TUB Prov:CHRISTIAN VINESC 03/15/18 Naproxen* (Naprosyn*) 500 Mg Tablet, 500 MG PO BID PRN for PAIN AND/OR INFLAMMATION, #30 TAB Prov:CHRISTIAN VINESC 03/15/18 Tramadol HCl (Tramadol HCl) 50 Mg Tablet, 50 MG PO Q6 for SEVERE PAIN LEVEL 7- 10, #20 TAB Prov:PRIMO REILLY NP 12/11/17 Acetaminophen* (Tylophen*) 500 Mg Capsule, 1 CAP PO Q6H PRN for PAIN AND OR ELEVATED TEMP, #20 CAP Prov:PRIMO REILLY NP 12/11/17 Ibuprofen* (Motrin*) 600 Mg Tab, 600 MG PO Q6H PRN for PAIN AND OR ELEVATED TEMP, #30 TAB Prov:PRIMO REILLY NP 12/11/17 Cephalexin* (Keflex*) 500 Mg Capsule, 500 MG PO QID for 10 Days, CAP Prov:PRIMO REILLY NP 12/11/17 Sulfamethoxazole/Trimethoprim* (Bactrim Ds* Tablet) 1 Each Tablet, 1 TAB PO BID, #20 TAB Prov:PRIMO REILLY NP 12/11/17 Gemfibrozil* (Gemfibrozil*) 600 Mg Tablet, 600 MG PO BID for 30 Days, TAB Prov:EDITH YATES MD 08/30/17 Reported Medications Metformin Hcl* (Metformin Hcl*) 1,000 Mg Tablet, 1000 MG PO WITH BREAKFAST DINNE, #60 TAB 10/11/17 Allergies Allergies: Coded Allergies: No Known Allergy (Verified , 10/11/17) PMhx/Soc History of Surgery: Yes ( x2) Anesthesia Reaction: No Hx Neurological Disorder: No Hx Respiratory Disorders: No Hx Cardiac Disorders: Yes (HTN) Hx Psychiatric Problems: No Hx Miscellaneous Medical Probl: Yes (DM, PANCREATITIS) Hx Alcohol Use: Yes Hx Substance Use: Yes (MARIJUANA) Hx Tobacco Use: Yes Smoking Status: Current every day smoker Physical Exam Vitals Vital Signs Date Temp Pulse Resp B/P (MAP) Pulse Ox O2 O2 Flow FiO2 Time Delivery Rate 07/17/18 98.0 104 20 111/68 99 20:42 (82) Physical Exam Examined with female interior design director, Carol EMT. Const: No acute distress Head: Atraumatic Eyes: Normal Conjunctiva ENT: Normal External Ears, Nose and Mouth. Neck: Full range of motion. No meningismus. Resp: Clear to auscultation bilaterally Cardio: Regular rate and rhythm, no murmurs Abd: Soft, non tender, non distended. Normal bowel sounds. Bilateral inguinal areas no swelling/discoloration./Tenderness. Skin: No petechiae or rashes. Right inner thigh has a swelling and redness measuring approximately 3 cm in diameter. No induration. No fluctuance. Intact skin. Back: No midline or flank tenderness Ext: No cyanosis, or edema Neur: Awake and alert. No neurological deficits.. Psych: Normal Mood and Affect Results 24 hrs Current Medications Medications Dose Sig/Ruth Start Time Status Last (Trade) Ordered Route PRN Stop Time Admin Dose Reason Admin 1 tab ONCE ONCE 07/17/18 DC 07/17/18 Acetaminophen PO 21:00 21:09 / 07/17/18 Hydrocodone 21:01 Bitart ([place] ()) Procedures/MDM Diagnostic tests: Clinical exam. Treatment: [place] p.o. Re-evaluation: Denies pain. Differential diagnosis I have low suspicion for sepsis, necrotizing fasciitis, deep space infection. Final diagnosis: Cellulitis. Prescription: Bactrim. Keflex. [place]. Motrin. Follow-up with PCP in the next 24-48 hours. Come back here in the emergency department for any new symptoms or any worsening symptoms. All questions and concerns were answered. Patient and family members verbalized understanding and agreed with plan of care. Hemodynamically stable on discharge. Clinical exam. Departure Diagnosis: Primary Impression: Cellulitis Additional Impression: Abscess Condition: Stable Additional Instructions: Follow-up with PCP in the next 24-48 hours. Come back here in the emergency department for any new symptoms or any worsening symptoms. GARCÍA BECKMAN Jul 17, 2018 21:09
[2018-07-17] MEDS ORDERED: CEPH-443 PO (21:10)
[2018-07-17] MEDS ORDERED: HYDR-3980 PO (21:11)
[2018-07-17] MEDS ORDERED: IBUP800T48 PO (21:11)
[2018-07-17] MEDS ORDERED: SULF1TAB31 PO (21:11)
== END 2018-07-17 21:25 | disposition home or self-care (01) ==
LOC: FTE 20:39
DX: L03.115 Cellulitis of right lower limb (principal); L02.415 Cutaneous abscess of right lower limb; E11.9 Type 2 diabetes mellitus without complications; I10 Essential (primary) hypertension; F17.210 Nicotine dependence, cigarettes, uncomplicated; Z79.84 Long term (current) use of oral hypoglycemic drugs
CPT/HCPCS: Z7502; Z7610; 99283

== ENCOUNTER 2018-08-23 15:35 | Emergency (ER) | payer OTHER ==
[~2018-08-23] VITALS: Ht 167.6 cm; Wt 100.0 kg
[~2018-08-23 15:35] MED LIST changes: +FAMO-95 PO; -GEMF600T4 PO; +GEMF600T8 PO; +HYDR-3980 PO; +IBUP800T48 PO; +ONDA4TAB8 PO
[2018-08-23 15:39] VITALS: Ht 167.6 cm; Wt 100.0 kg
[2018-08-24] MEDS ORDERED: ONDA8TAB14 PO (17:57)
[2018-08-28] MEDS ORDERED: NICO-546 TRANSDERM (12:17)
[2018-08-28] MEDS ORDERED: GEMF600T8 PO (12:17)
== END 2018-08-23 19:21 | disposition left against medical advice (07) ==
LOC: FTE 15:35
DX: Z53.21 Procedure and treatment not carried out due to patient leaving prior to being seen by health care provider (principal)

== ENCOUNTER 2018-10-16 15:18 | Emergency (ER) | payer OTHER ==
[~2018-10-16] VITALS: Ht 170.2 cm; Wt 98.5 kg
[~2018-10-16 15:18] MED LIST changes: -CEPH-443 PO; -HYDR-4011 PO; -IBUP-1542 PO; -IBUP800T48 PO; -NAPR-985 PO; +NICO-546 TRANSDERM; +ONDA8TAB14 PO; -SULF1TAB31 PO; -TRAM50TA2 PO
[2018-10-16 15:26] VITALS: Ht 170.2 cm; Wt 98.5 kg
--- NOTE | 2018-10-16 16:54 | ERD ---
ER Documentation Chief Complaint Chief Complaint chest squeezing HPI The patient is a 38-year-old female, presenting to the ER because he feels as if her heart was squeezing/palpitation around 8:30 AM this morning after she took a walk, denies similar symptoms previously, felt better, denies chest pain with vomiting/radiation/exertion/diaphoresis, dyspnea, abdominal pain, vomiting, dysuria. She does not smoke nor drink or does illicit drug. She was admitted recently 2 months ago for acute pancreatitis due to acute hyperTG Past medical history: Dyslipidemia, diabetes mellitus, history of pancreatitis Past surgical history: , tubal ligation ROS All systems reviewed and are negative except as per history of present illness. Medications Home Meds Active Scripts Nicotine* (Nicotine* Patch) 21 mg/day Patch, 1 PATCH TRANSDERM DAILY for 28 Days Prov:EDITH YATES MD 08/28/18 Gemfibrozil* (Gemfibrozil*) 600 Mg Tablet, 600 MG PO BID for 30 Days, #60 TAB Prov:EDITH YATES MD 08/28/18 Ondansetron (Ondansetron Odt) 8 Mg Tab.rapdis, 8 MG PO Q6H PRN for NAUSEA AND/OR VOMITING, #10 TAB Prov:CHRISTIAN ALONZO 08/24/18 Famotidine* (Pepcid* AC) 20 Mg Tablet, 20 MG PO BID, #60 TAB Prov:SARA SCHWAB 08/23/18 Ondansetron Hcl* (Zofran*) 4 Mg Tablet, 4 MG PO Q8H PRN for NAUSEA AND/OR VOMITING, #30 TAB Prov:SRAA SCHWAB 08/23/18 Hydrocodone/Acetaminophen ([place] 10-325 Tablet) 1 Each Tablet, 1 TAB PO Q6H PRN for SEVERE PAIN LEVEL 7-10, #7 TAB Prov:GARCÍA BECKMAN 07/17/18 Ondansetron (Ondansetron Odt) 4 Mg Tab.rapdis, 4 MG PO Q6H PRN for NAUSEA AND/OR VOMITING, #10 TAB Prov:BRADLEY LORENZO PA-C 07/03/18 Ondansetron (Ondansetron Odt) 4 Mg Tab.rapdis, 4 MG PO Q6H PRN for NAUSEA AND/OR VOMITING, #10 TAB Prov:ELPIDIO ANN PA-C 05/02/18 Famotidine* (Pepcid*) 20 Mg Tablet, 20 MG PO BID for 4 Days, #30 TAB Prov:ELPIDIO ANN PA-C 05/02/18 Hydrocortisone* Topical (Hydrocortisone* Topical) 2.5%-28.3 Gm Cream..g., 1 APPLIC TOP BID, #1 TUB Prov:CHRISTIAN VINES PA-C 03/15/18 Acetaminophen* (Tylophen*) 500 Mg Capsule, 1 CAP PO Q6H PRN for PAIN AND OR ELEVATED TEMP, #20 CAP Prov:PRIMO REILLY NP 12/11/17 Reported Medications Metformin Hcl* (Metformin Hcl*) 1,000 Mg Tablet, 1000 MG PO WITH BREAKFAST DINNE, #60 TAB 10/11/17 Allergies Allergies: Coded Allergies: No Known Allergy (Verified , 10/11/17) PMhx/Soc History of Surgery: Yes (C- SECTION / TUBAL LIGATION) Anesthesia Reaction: No Hx Neurological Disorder: No Hx Respiratory Disorders: No Hx Cardiac Disorders: Yes (HTN) Hx Psychiatric Problems: No Hx Miscellaneous Medical Probl: No Hx Alcohol Use: Yes Hx Substance Use: Yes (WHEN SHE WAS YOUNGER) Hx Tobacco Use: Yes (6 STICKS / DAY) Physical Exam Vitals Vital Signs Date Temp Pulse Resp B/P (MAP) Pulse Ox O2 O2 Flow FiO2 Time Delivery Rate 10/16/18 Nasal 2 17:20 Cannula 10/16/18 100.7 108 18 126/67 97 Room Air 17:10 (86) 10/16/18 100.7 118 18 144/77 97 15:26 (99) Physical Exam Const: No acute distress. Head: Atraumatic. Eyes: Normal Conjunctiva. ENT: Normal External Ears, Nose and Mouth. Neck: Full range of motion. No meningismus. Resp: Clear to auscultation bilaterally. Cardio: Regular tachycardiac Abd: Soft, non distended, normal bowel sounds, non tender. Skin: No petechiae or rashes. Back: No midline or flank tenderness. Ext: No cyanosis, or edema. Neur: Awake and alert. No focal deficit Psych: Normal Mood and Affect. Result Diagram: 10/16/18 1705 10/16/18 1705 Results 24 hrs Laboratory Tests Test 10/16/18 17:05 10/16/18 17:16 10/16/18 20:26 10/16/18 20:27 White Blood Count 12.3 10^3/ul Red Blood Count 4.62 10^6/ul Hemoglobin 14.2 g/dl Hematocrit 41.1 % Mean Corpuscular 89.0 fl Volume Mean Corpuscular 30.7 pg Hemoglobin Mean Corpuscular 34.5 g/dl Hemoglobin Concent Red Cell 12.1 % Distribution Width Platelet Count 199 10^3/UL Mean Platelet 11.9 fl Volume Immature 0.600 % Granulocytes % Neutrophils % 88.6 % Lymphocytes % 6.1 % Monocytes % 4.4 % Eosinophils % 0.1 % Basophils % 0.2 % Nucleated Red Blood 0.0 /100WBC Cells % Immature 0.070 10^3/ul Granulocytes # Neutrophils # 10.9 10^3/ul Lymphocytes # 0.8 10^3/ul Monocytes # 0.5 10^3/ul Eosinophils # 0.0 10^3/ul Basophils # 0.0 10^3/ul Nucleated Red Blood 0.0 10^3/ul Cells # D-Dimer 482.72 ng/ml D-Dimer Comment Sodium Level 140 mmol/L Potassium Level 4.2 mmol/L Chloride Level 107 mmol/L Carbon Dioxide 21 mmol/L Level Anion Gap 12 Blood Urea Nitrogen 17 mg/dl Creatinine 0.58 mg/dl Est Glomerular > 60 mL/min Filtrat Rate mL/min Glucose Level 166 mg/dl Calcium Level 9.7 mg/dl Total Bilirubin 1.1 mg/dl Direct Bilirubin 0.00 mg/dl Indirect Bilirubin 1.1 mg/dl Aspartate Amino 17 IU/L Transf (AST/SGOT) Alanine 17 IU/L Aminotransferase (A LT/SGPT) Alkaline 102 IU/L Phosphatase Troponin I < 0.012 ng/ml Total Protein 7.9 g/dl Albumin 4.6 g/dl Globulin 3.30 g/dl Albumin/Globulin 1.39 Ratio Lipase 62 U/L POC Beta HCG, NEGATIVE NEGATIVE Qualitative Bedside Urine pH 5.0 (LAB) Bedside Urine Negative Protein (LAB) Bedside Urine Negative Glucose (UA) Bedside Urine 1+ Ketones (LAB) Bedside Urine Blood Trace-lysed Bedside Urine Negative Nitrite (LAB) Bedside Urine Negative Leukocyte Esterase (L Current Medications Medications Dose Sig/Ruth Start Time Status Last (Trade) Ordered Route PRN Stop Time Admin Dose Reason Admin IV Flush 10 ml STK-MED 10/16/18 DC (NS 10 ml) ONCE .ROUTE 18:50 10/16/18 18:51 Sodium 100 ml @ ud STK-MED 10/16/18 DC Chloride ONCE .ROUTE 18:50 10/16/18 18:51 Iohexol 100 ml @ ud STK-MED 10/16/18 DC ONCE .ROUTE 18:50 10/16/18 18:51 Ibuprofen 600 mg ONCE ONCE 10/16/18 DC (Motrin) PO 20:00 10/16/18 20:01 Procedures/MDM EK:26 PM Read by emergency physician Rate/Rhythm: ST 118 beats/min QRS, ST, T-waves: No ST elevation, no T inversion Impression: Abnormal EKG EK:13pm Read by emergency physician Rate/Rhythm: Normal Sinus Rhythm 88 beats/min QRS, ST, T-waves: No ST elevation, no T inversion Impression: Normal EKG [place] [id number] Radiology Main Line: [phone] DIAGNOSTIC IMAGING REPORT Patient: QUINTON FREITAS : 1980 Age: 38 Sex: F MR #: [id number] DOS: 10/16/18 1700 Ordering MD: RAFA PIÑA MD Location: E/R Room/Bed: PROCEDURE: XR Chest. CLINICAL INDICATION: chest pain TECHNIQUE: Single frontal view of the chest was obtained COMPARISON: None FINDINGS: The heart and mediastinum are within normal limits. The lungs are clear. There is no pleural effusion or pneumothorax. RPTAT: AA IMPRESSION: No acute disease. .Naveen Turk MD, Date Time Electronically viewed and signed by .Naveen Turk MD, MD on 10/16/2018 18:46 .S/ CC: RAFA PIÑA MD [phone] [place] [id number] Radiology Main Line: [phone] DIAGNOSTIC IMAGING REPORT Patient: QUINTON FREITAS : 1980 Age: 38 Sex: F MR #: [id number] DOS: 10/16/18 1700 Ordering MD: RAFA PIÑA MD Location: E/R Room/Bed: PROCEDURE: US Lower extremity Venous. CLINICAL INDICATION: chest pain TECHNIQUE: Multiple sonographic images of the bilateral lower extremity deep venous system was obtained utilizing grayscale, color-flow, compressive sonography and doppler imaging with augmentation. The images were reviewed on a PACS workstation. COMPARISON: None. FINDINGS: There is normal compressibility and flow within the bilateral common femoral, femoral and popliteal veins. IMPRESSION: No sonographic evidence for deep venous thrombosis of the bilateral lower extremities. RPTAT: AA Physician Mo Date Time Electronically viewed and signed by Physician Mo on 10/16/2018 18:38 RB/ CC: RAFA PIÑA MD [id number] [place] [id number] Radiology Main Line: [phone] DIAGNOSTIC IMAGING REPORT Patient: QUINTON FREITAS : 1980 Age: 38 Sex: F MR #: [id number] DOS: 10/16/18 0000 Ordering MD: RAFA PIÑA MD Location: E/R Room/Bed: PROCEDURE: CT Pulmonary Angiogram. CLINICAL INDICATION: Chest pain and shortness of breath. TECHNIQUE: CT pulmonary angiogram and a CT scan of the chest with contrast was performed. The patient was scanned following the uncomplicated intravenous administration of 100 ml of Omnipaque-350 intravenous contrast. 2-D coronal r eformatted images were obtained from the axial source images. In addition, 3-D post processing was performed. Total exam DLP is 704.02 mGy-cm. CTDIvol is 39.44 mGy. One or more of the following dose reduction techniques were used: Automated exposure control, adjustment of the mA and/or kV according to patient size, use of iterative reconstruction technique. DICOM images are available. COMPARISON: Chest radiograph done earlier the same day. FINDINGS: The pulmonary arteries are normal with no filling defect or lack of enhancement to suggest pulmonary artery embolism. The lungs are clear. There is no pulmonary airspace or interstitial disease. There is a benign bulla at the right lung base posteriorly medially measuring 2.3 x 1.4 cm. There is no pulmonary nodule or mass lesion. There is no pneumothorax. There is no mediastinal or hilar lymphadenopathy or mass. There is no pleural effusion. There is no pericardial effusion. The thoracic aorta is normal with no aneurysm or dissection. Images through the upper abdomen demonstrate normal visualized portions of the liver, spleen, and adrenals. The osseous structures are normal with no fracture or lytic lesion. IMPRESSION: 1. Normal CT pulmonary angiogram with no evidence of pulmonary artery embolism. 2. Small benign bulla at the right lung base posteriorly medially measuring up to 2.3 cm. [address]. Otherwise un[address] CT scan of the chest. RPTAT: QQ .Davy Vaughn MD, Date Time Electronically viewed and signed by .Davy Vaughn MD, MD on 10/16/2018 19:23 .R/ CC: RAFA PIÑA MD [id number] MEDICAL MAKING DECISION: The patient is a 38-year-old female, presenting with acute palpitation and chest discomfort and fever of unclear etiology, was treated with Motrin for discomfort and fever with good response, stable for outpatient follow-up The differential diagnoses considered include but are not limited to acute coronary syndrome, acute myocardial infarction, pericarditis, pulmonary embolism, aortic dissection, pneumonia, pleural effusion, pneumothorax, GERD, chest wall pain, thyroid disease, anxiety attack, panic attack. Departure Diagnosis: Primary Impression: Palpitation Condition: Good Comments I discussed the findings with the patient. I advised the patient to follow-up with the primary physician in about 2-3 days, sooner if needed and return if any concern. Disclaimer: Inadvertent spelling and grammatical errors are likely due to EHR/dictation software use and do not reflect on the overall quality of patient care. Also, please note that the electronic time recorded on this note does not necessarily reflect the actual time of the patient encounter. RAFA PIÑA MD Oct 16, 2018 16:54
[2018-10-16] MEDS ORDERED: IOHEXOL 100 ML ONE (18:50)
[2018-10-16] MEDS ORDERED: SOD CHLORIDE 0.9% 100 ML ONE (18:50)
[2018-10-16] MEDS ORDERED: IBUPROFEN 600 MG TAB PO ONE (20:00)
[2018-10-16 21:45] VITALS: BP 129/66; PULSE 99; RESP 18
== END 2018-10-16 22:07 | disposition home or self-care (01) ==
LOC: E/R 15:18
DX: R00.2 Palpitations (principal); E11.9 Type 2 diabetes mellitus without complications; I10 Essential (primary) hypertension; Z79.84 Long term (current) use of oral hypoglycemic drugs; Z87.891 Personal history of nicotine dependence
CPT/HCPCS: 36415; 71045; 71275; 80053; 81003; 81025; 83690; 84484; 85025; 85378; 93005; 93970; Q9967; Z7502; Z7610

== ENCOUNTER 2019-01-01 16:13 | Emergency (ER) | payer OTHER ==
[~2019-01-01] VITALS: Ht 167.6 cm; Wt 100.2 kg
[2019-01-01 16:42] VITALS: Ht 167.6 cm; Wt 100.2 kg
[2019-01-01] MEDS ORDERED: SOD CHLORIDE 0.9% 1,000 ML IV STA (18:20)
[2019-01-01] MEDS ORDERED: morphine 2 MG INJ IV STA (18:20)
[2019-01-01] MEDS ORDERED: ONDANSETRON 4 MG INJ IV STA (18:20)
--- NOTE | 2019-01-01 18:58 | ERD ---
ER Documentation Chief Complaint Chief Complaint mu pancreatis again, can't keep anything down. since last night HPI 38-year-old female with past medical history of chronic pancreatitis who presents with complaint of abdominal pain since last night. She describes sharp pain to mid epigastric region with radiation to left flank. She denies right upper quadrant pain. Has had persistent nausea but no episodes of vomiting. She otherwise denies fevers, chills, chest pain, shortness of breath, dyspnea, diarrhea, urinary symptoms such as burning itching or frequency, alcohol or drug abuse history. ROS All systems reviewed and are negative except as per history of present illness. Medications Home Meds Active Scripts Famotidine* (Pepcid*) 20 Mg Tablet, 20 MG PO BID for 4 Days, TAB Prov:THUY ORDAZ-C 01/01/19 Naproxen* (Naprosyn*) 500 Mg Tablet, 500 MG PO BID PRN for PAIN AND/OR INFLAMMATION, #30 TAB Prov:THUY ORDAZC 01/01/19 Ondansetron Hcl* (Zofran*) 4 Mg Tablet, 4 MG PO Q6H for NAUSEA AND/OR VOMITING, #30 TAB Prov:THUY ORDAZ-C 01/01/19 Hydrocodone/Acetaminophen ([place] 5-325 Tablet) 1 Each Tablet, 1 TAB PO Q6H PRN for PAIN, #20 TAB Prov:THUY ORDAZC 01/01/19 Nicotine* (Nicotine* Patch) 21 mg/day Patch, 1 PATCH TRANSDERM DAILY for 28 Days Prov:EDITH YATES MD 08/28/18 Gemfibrozil* (Gemfibrozil*) 600 Mg Tablet, 600 MG PO BID for 30 Days, #60 TAB Prov:EDITH YATES MD 08/28/18 Ondansetron (Ondansetron Odt) 8 Mg Tab.rapdis, 8 MG PO Q6H PRN for NAUSEA AND/OR VOMITING, #10 TAB Prov:CHRISTIAN ALONZO 08/24/18 Famotidine* (Pepcid* AC) 20 Mg Tablet, 20 MG PO BID, #60 TAB Prov:SARA SCHWAB 08/23/18 Ondansetron Hcl* (Zofran*) 4 Mg Tablet, 4 MG PO Q8H PRN for NAUSEA AND/OR VOMITING, #30 TAB Prov:ZAHEERSARA 08/23/18 Hydrocodone/Acetaminophen ([place] 10-325 Tablet) 1 Each Tablet, 1 TAB PO Q6H PRN for SEVERE PAIN LEVEL 7-10, #7 TAB Prov:GARCÍA BECKMAN 07/17/18 Ondansetron (Ondansetron Odt) 4 Mg Tab.rapdis, 4 MG PO Q6H PRN for NAUSEA AND/OR VOMITING, #10 TAB Prov:BRADLEY LORENZO PA-C 07/03/18 Ondansetron (Ondansetron Odt) 4 Mg Tab.rapdis, 4 MG PO Q6H PRN for NAUSEA AND/OR VOMITING, #10 TAB Prov:ELPIDIO ANN PA-C 05/02/18 Famotidine* (Pepcid*) 20 Mg Tablet, 20 MG PO BID for 4 Days, #30 TAB Prov:ELPIDIO ANN PA-C 05/02/18 Hydrocortisone* Topical (Hydrocortisone* Topical) 2.5%-28.3 Gm Cream..g., 1 APPLIC TOP BID, #1 TUB Prov:CHRISTIAN VINES PA-C 03/15/18 Acetaminophen* (Tylophen*) 500 Mg Capsule, 1 CAP PO Q6H PRN for PAIN AND OR ELEVATED TEMP, #20 CAP Prov:PRIMO REILLY NP 12/11/17 Reported Medications Metformin Hcl* (Metformin Hcl*) 1,000 Mg Tablet, 1000 MG PO WITH BREAKFAST DINNE, #60 TAB 10/11/17 Allergies Allergies: Coded Allergies: No Known Allergy (Verified , 10/11/17) PMhx/Soc History of Surgery: Yes (C- SECTION / TUBAL LIGATION) Anesthesia Reaction: No Hx Neurological Disorder: No Hx Respiratory Disorders: No Hx Cardiac Disorders: Yes (HTN) Hx Psychiatric Problems: No Hx Miscellaneous Medical Probl: No Hx Alcohol Use: Yes Hx Substance Use: No Hx Tobacco Use: No FmHx Family History: diabetes, other Physical Exam Vitals Vital Signs Date Temp Pulse Resp B/P (MAP) Pulse Ox O2 O2 Flow FiO2 Time Delivery Rate 01/01/19 98.2 97 18 133/83 98 21:17 (100) 01/01/19 97.8 93 18 107/65 97 16:42 (79) Physical Exam I have reviewed the triage vital signs. Const: Well nourished, well developed, appears stated age Eyes: PERRL, no conjunctival injection HENT: NCAT, Neck supple without meningismus CV: RRR, Warm, well-perfused extremities RESP: CTAB, Unlabored respiratory effort GI: soft,-tender to epigastrium, left upper quadrant, no rebound or guarding, non-distended, no masses MSK: No gross deformities appreciated Skin: Warm, dry. No rashes Neuro: grossly non focal Psych: Appropriate mood and affect. Result Diagram: 01/01/19184401/01/191844 Results 24 hrs Laboratory Tests Test 01/01/19 18:45 01/01/19 19:42 White Blood Count 16.9 10^3/ul Red Blood Count 4.62 10^6/ul Hemoglobin 14.3 g/dl Hematocrit 41.9 % Mean Corpuscular Volume 90.7 fl Mean Corpuscular Hemoglobin 31.0 pg Mean Corpuscular Hemoglobin Concent 34.1 g/dl Red Cell Distribution Width 11.9 % Platelet Count 206 10^3/UL Mean Platelet Volume 12.4 fl Immature Granulocytes % 0.600 % Neutrophils % 77.5 % Lymphocytes % 17.2 % Monocytes % 4.2 % Eosinophils % 0.1 % Basophils % 0.4 % Nucleated Red Blood Cells % 0.0 /100WBC Immature Granulocytes # 0.100 10^3/ul Neutrophils # 13.2 10^3/ul Lymphocytes # 2.9 10^3/ul Monocytes # 0.7 10^3/ul Eosinophils # 0.0 10^3/ul Basophils # 0.1 10^3/ul Nucleated Red Blood Cells # 0.0 10^3/ul Urine Color YELLOW Urine Clarity CLOUDY Urine pH 5.0 Urine Specific [place] 1.029 Urine Ketones TRACE mg/dL Urine Nitrite NEGATIVE mg/dL Urine Bilirubin NEGATIVE mg/dL Urine Urobilinogen 1+ mg/dL Urine Leukocyte Esterase TRACE [place]/ul Urine Microscopic RBC 3 /HPF Urine Microscopic WBC 10 /HPF Urine Squamous Epithelial Cells FEW /HPF Urine Mucus MANY /HPF Urine Hemoglobin 1+ mg/dL Urine Glucose NEGATIVE mg/dL Urine Total Protein 1+ mg/dl Sodium Level 141 mmol/L Potassium Level 4.7 mmol/L Chloride Level 106 mmol/L Carbon Dioxide Level 24 mmol/L Anion Gap 11 Blood Urea Nitrogen 20 mg/dl Creatinine 0.55 mg/dl Est Glomerular Filtrat Rate mL/min > 60 mL/min Glucose Level 136 mg/dl Calcium Level 9.7 mg/dl Total Bilirubin 1.2 mg/dl Direct Bilirubin 0.00 mg/dl Indirect Bilirubin 1.2 mg/dl Aspartate Amino Transf (AST/SGOT) 32 IU/L Alanine Aminotransferase (ALT/SGPT) 32 IU/L Alkaline Phosphatase 87 IU/L Total Protein 8.3 g/dl Albumin 4.8 g/dl Globulin 3.50 g/dl Albumin/Globulin Ratio 1.37 Amylase Level 70 U/L Lipase 287 U/L Urine Opiates Screen Positive Urine Barbiturates Negative Urine Amphetamines Screen Negative Urine Benzodiazepines Screen Negative Urine Cocaine Screen Negative Urine Cannabinoids Positive Ethyl Alcohol Level < 10.0 mg/dl Urine Test NEGATIVE Current Medications Medications Dose Sig/Ruth Start Time Status Last (Trade) Ordered Route PRN Stop Time Admin Dose Reason Admin Sodium 1,000 ml @ Q1H STAT 01/01/19 DC 01/01/19 Chloride 1,000 mls/hr IV 18:20 18:39 01/01/19 19:19 Morphine 2 mg ONCE STAT 01/01/19 DC 01/01/19 Sulfate IV 18:20 18:39 (morphine) 01/01/19 18:21 Ondansetron 4 mg ONCE STAT 01/01/19 DC 01/01/19 HCl (Zofran IV 18:20 18:39 Inj) 01/01/19 18:21 1 mg ONCE STAT 01/01/19 DC 01/01/19 Hydromorphone IV 19:18 19:25 HCl 01/01/19 19:19 (Dilaudid) Procedures/MDM 38-year-old female with past medical history of chronic pancreatitis presents with likely flare. I have a very low suspicion for acute appendicitis warranting further emergent care, appendicitis, ischemic bowel, bowel perforatio n, or any other life threatening disease. I have discussed with the patient the level of uncertainty with undifferentiated abdominal pain and clearly explained the need to follow-up as noted on the discharge instructions in 24 hours for reexamination or return to the Emergency Department immediately if the pain worsens, develops fever, persistent and uncontrollable vomiting, or for any new symptoms or concerns prior to 24 hours. ED course: Lipase 287, liver enzymes within normal limits, WBC 16.9 UA trace leukocyte esterase, 10 WBC, few bacterial cells patient without any urinary symptoms or complaints, no fevers Prescription for Keflex 500 mg twice daily X 7 days called into patient's phar [facility]. DISPOSITION PLAN: We discussed follow up with the patient's primary care doctor within 24 to 48 hours. Patient counseled regarding my diagnostic impression and care plan. Prior to discharge all questions answered. Pt agrees with treatment plan and understands strict return precautions. Precautionary instructions provided including instructions to return to the ER if not improving or for any worsening or changing symptoms or concerns. Disclaimer: Inadvertent spelling and grammatical errors are likely due to EHR/dictation software use and do not reflect on the overall quality of patient care. Also, please note that the electronic time recorded on this note does not necessarily reflect the actual time of the patient encounter. Departure Diagnosis: Primary Impression: Abdominal pain Condition: Stable THUY ORDAZ PA-C Jan 01, 2019 18:58
[2019-01-01] MEDS ORDERED: HYDROmorphONE 2 MG/ML SYG IV STA (19:18)
[2019-01-01] MEDS ORDERED: FAMO-96 PO (20:55)
[2019-01-01] MEDS ORDERED: ONDA4TAB8 PO (20:55)
[2019-01-01] MEDS ORDERED: NAPR-985 PO (20:55)
[2019-01-01] MEDS ORDERED: HYDR-4011 PO (20:55)
[2019-01-01 21:17] VITALS: BP 133/83; PULSE 97; RESP 18
== END 2019-01-01 21:19 | disposition home or self-care (01) ==
LOC: FTE 16:13
DX: R10.13 Epigastric pain (principal); I10 Essential (primary) hypertension; Z79.84 Long term (current) use of oral hypoglycemic drugs
CPT/HCPCS: 80053; 80307; 81001; 82150; 83690; 84703; 85025; J1170; J2270; J2405; J7030; 36415; 96374; 96375

== ENCOUNTER 2019-01-04 15:43 | Emergency (ER) | payer OTHER ==
[~2019-01-04] VITALS: Ht 167.6 cm; Wt 99.2 kg
[~2019-01-04 15:43] MED LIST changes: +HYDR-4011 PO; +NAPR-985 PO
[2019-01-04 15:46] VITALS: Ht 167.6 cm; Wt 99.2 kg
[2019-01-04] MEDS ORDERED: SOD CHLORIDE 0.9% 1,000 ML IV STA (16:22)
[2019-01-04] MEDS ORDERED: FAMOTIDINE 20 MG INJ IV STA (16:22)
[2019-01-04] MEDS ORDERED: KETOROLAC 30 MG INJ IV STA (16:22)
[2019-01-04] MEDS ORDERED: morphine 4 MG/ML VIAL IV STA (16:22)
[2019-01-04] MEDS ORDERED: METOCLOPRAMIDE 10 MG INJ IV ONE (16:30)
[2019-01-04] MEDS ORDERED: DIPHENHYDRAMINE 50 MG INJ IV ONE (16:30)
[2019-01-04] MEDS ORDERED: HYDROmorphONE 2 MG/ML SYG IM STA (18:04)
[2019-01-04] MEDS ORDERED: ONDA8TAB14 PO (18:12)
[2019-01-04] MEDS ORDERED: PROM25TA14 PO (18:12)
[2019-01-04] MEDS ORDERED: TRAM50TA2 PO (18:12)
[2019-01-04] MEDS ORDERED: CEPH-443 PO (18:12)
[2019-01-04] MEDS ORDERED: OMEP40CA6 PO (18:15)
[2019-01-04] MEDS ORDERED: FAMO-96 PO (18:15)
[2019-01-04] MEDS ORDERED: METO10TA92 PO (18:16)
[2019-01-04 18:35] VITALS: BP 128/75; PULSE 78; RESP 18
--- NOTE | 2019-01-04 21:15 | ERD ---
ER Documentation Chief Complaint Chief Complaint abd pain with nausea/vomiting since tuesday HPI History of Present Illness: 38-year-old female with history of insulin-dependent diabetes, chronic pancreatitis coming in today with complaint of epigastric pain. Patient denies vomiting, but nausea is persistent. Patient denies radiat ion of pain that was previously radiating to flank during her last visit to emergency department earlier this week. Patient reports that pain never went away and it has increased and it hurts to walk. Patient reports pain is epigastric, 10/10, heaviness/pressure. At home pharmacological/nonpharmacological treatment for symptoms: Currently on cephalexin for urinary tract infection and [place] and [place] Denies social concerns; Denies recent foreign travel ROS All systems reviewed and are negative except as per history of present illness. Medications Home Meds Active Scripts Metoclopramide* (Reglan*) 10 Mg Tablet, 10 MG PO TID for NAUSEA, #15 TAB Prov:MARIANN BOLDEN [employer] 01/04/19 Famotidine* (Pepcid*) 20 Mg Tablet, 40 MG PO BID for EPIGASTRIC ABDOMINAL PAIN/GERD for 30 Days, TAB Prov:MARIANN BOLDEN [employer] 01/04/19 Omeprazole* (Omeprazole*) 40 Mg Capsule.dr, 40 MG PO DAILY for EPIGASTRIC A BDOMINAL PAIN, #30 CAP Prov:MARIANN BOLDEN [employer] 01/04/19 Tramadol HCl (Tramadol HCl) 50 Mg Tablet, 50 MG PO Q6 PRN for PAIN, #20 TAB Prov:MARIANN BOLDEN [employer] 01/04/19 Promethazine Hcl* (Phenergan*) 25 Mg Tablet, 25 MG PO Q6 PRN for NAUSEA AND/OR VOMITING, #30 TAB Prov:MARIANN BOLDEN [employer] 01/04/19 Cephalexin* (Keflex*) 500 Mg Capsule, 500 MG PO QID for INFECTION for 7 Days, CAP Prov:MARIANN BOLDEN [employer] 01/04/19 Famotidine* (Pepcid*) 20 Mg Tablet, 20 MG PO BID for 4 Days, TAB Prov:THUY ORDAZ PA-C 01/01/19 Naproxen* (Naprosyn*) 500 Mg Tablet, 500 MG PO BID PRN for PAIN AND/OR IN FLAMMATION, #30 TAB Prov:JEUDINETHUY PA-C 01/01/19 Ondansetron Hcl* (Zofran*) 4 Mg Tablet, 4 MG PO Q6H for NAUSEA AND/OR VOMITING, #30 TAB Prov:THUY ORDAZ PA-C 01/01/19 Hydrocodone/Acetaminophen ([place] 5-325 Tablet) 1 Each Tablet, 1 TAB PO Q6H PRN f or PAIN, #20 TAB Prov:THUY ORDAZ PA-C 01/01/19 Nicotine* (Nicotine* Patch) 21 mg/day Patch, 1 PATCH TRANSDERM DAILY for 28 Days Prov:EDITH YATES MD 08/28/18 Gemfibrozil* (Gemfibrozil*) 600 Mg Tablet, 600 MG PO BID for 30 Days, #60 TAB Prov:EDITH YATES MD 08/28/18 Ondansetron (Ondansetron Odt) 8 Mg Tab.rapdis, 8 MG PO Q6H PRN for NAUSEA AND/OR VOMITING, #10 TAB Prov:CHRISTIAN ALONZO 08/24/18 Famotidine* (Pepcid* AC) 20 Mg Tablet, 20 MG PO BID, #60 TAB Prov:SARA SCHWAB 08/23/18 Ondansetron Hcl* (Zofran*) 4 Mg Tablet, 4 MG PO Q8H PRN for NAUSEA AND/OR VOMITING, #30 TAB Prov:SARA SCHWAB 08/23/18 Hydrocodone/Acetaminophen ([place] 10-325 Tablet) 1 Each Tablet, 1 TAB PO Q6H PRN for SEVERE PAIN LEVEL 7-10, #7 TAB Prov:GARCÍA BECKMAN 07/17/18 Ondansetron (Ondansetron Odt) 4 Mg Tab.rapdis, 4 MG PO Q6H PRN for NAUSEA AND/OR VOMITING, #10 TAB Prov:BRADLEY LORENZO PA-C 07/03/18 Ondansetron (Ondansetron Odt) 4 Mg Tab.rapdis, 4 MG PO Q6H PRN for NAUSEA AND/OR VOMITING, #10 TAB Prov:ELPIDIO ANN PA-C 05/02/18 Famotidine* (Pepcid*) 20 Mg Tablet, 20 MG PO BID for 4 Days, #30 TAB Prov:ELPIDIO ANN PA-C 05/02/18 Hydrocortisone* Topical (Hydrocortisone* Topical) 2.5%-28.3 Gm Cream..g., 1 APPLIC TOP BID, #1 TUB Prov:CHRISTIAN VINES PA-C 03/15/18 Acetaminophen* (Tylophen*) 500 Mg Capsule, 1 CAP PO Q6H PRN for PAIN AND OR ELEVATED TEMP, #20 CAP Prov:PRIMO REILLY NP 12/11/17 Reported Medications Metformin Hcl* (Metformin Hcl*) 1,000 Mg Tablet, 1000 MG PO WITH BREAKFAST DINNE, #60 TAB 10/11/17 Discontinued Scripts Ondansetron (Ondansetron Odt) 8 Mg Tab.rapdis, 8 MG PO Q8 PRN for NAUSEA AND/OR VOMITING, #10 TAB Prov:MARIANN BOLDEN [employer]INE[employer] 01/04/19 Allergies Allergies: Coded Allergies: No Known Allergy (Verified , 10/11/17) PMhx/Soc History of Surgery: Yes (C- SECTION / TUBAL LIGATION) Anesthesia Reaction: No Hx Neurological Disorder: No Hx Respiratory Disorders: No Hx Cardiac Disorders: Yes (HTN) Hx Psychiatric Problems: No Hx Miscellaneous Medical Probl: No Hx Alcohol Use: Yes Hx Substance Use: No Hx Tobacco Use: No Smoking Status: Never smoker FmHx Family History: diabetes Physical Exam Vitals Vital Signs Date Temp Pulse Resp B/P (MAP) Pulse Ox O2 O2 Flow FiO2 Time Delivery Rate 01/04/19 98.5 78 18 128/75 99 Room Air 18:35 (92) 01/04/19 98.1 88 18 132/76 99 15:46 (94) Physical Exam Const: No acute distress, afebrile Head: Atraumatic Eyes: Normal Conjunctiva ENT: Normal External Ears, Nose and Mouth. Neck: Full range of motion. No meningismus. Resp: Clear to auscultation bilaterally Cardio: Regular rate and rhythm, no murmurs Abd: Soft, tenderness to palpation to epigastric, non distended. No guarding, no masses, no rigidity Skin: No petechiae or rashes Back: No midline or flank tenderness Ext: No cyanosis, or edema Neur: Awake and alert x3, speaking in clear sentences, no focal deficits or facial asymmetry Psych: Normal Mood and Affect Result Diagram: 01/04/19 1645 01/04/19 1645 Results 24 hrs Laboratory Tests Test 01/04/19 16:39 01/04/19 16:45 01/04/19 16:51 01/04/19 16:52 Urine Color YELLOW Urine Clarity CLOUDY Urine pH 5.0 Urine Specific 1.027 [place] Urine Ketones TRACE mg/dL Urine Nitrite NEGATIVE mg/dL Urine Bilirubin NEGATIVE mg/dL Urine 2+ mg/dL Urobilinogen Urine Leukocyte NEGATIVE Rosemary/ul Esterase Urine Microscopic 1 /HPF RBC Urine Microscopic 0 /HPF WBC Urine Squamous FEW /HPF Epithelial Cells Urine Bacteria FEW /HPF Urine Mucus MODERATE /HPF Urine Hemoglobin NEGATIVE mg/dL Urine Glucose NEGATIVE mg/dL Urine Total 1+ mg/dl Protein White Blood Count 10.2 10^3/ul Red Blood Count 4.23 10^6/ul Hemoglobin 12.9 g/dl Hematocrit 38.2 % Mean Corpuscular 90.3 fl Volume Mean Corpuscular 30.5 pg Hemoglobin Mean Corpuscular 33.8 g/dl Hemoglobin Concen t Red Cell 11.9 % Distribution Width Platelet Count 207 10^3/UL Mean Platelet 11.9 fl Volume Immature 0.400 % Granulocytes % Neutrophils % 57.7 % Lymphocytes % 31.8 % Monocytes % 8.6 % Eosinophils % 0.9 % Basophils % 0.6 % Nucleated Red 0.0 /100WBC Blood Cells % Immature 0.040 10^3/ul Granulocytes # Neutrophils # 5.9 10^3/ul Lymphocytes # 3.2 10^3/ul Monocytes # 0.9 10^3/ul Eosinophils # 0.1 10^3/ul Basophils # 0.1 10^3/ul Nucleated Red 0.0 10^3/ul Blood Cells # Sodium Level 140 mmol/L Potassium Level 4.0 mmol/L Chloride Level 105 mmol/L Carbon Dioxide 24 mmol/L Level Anion Gap 11 Blood Urea 16 mg/dl Nitrogen Creatinine 0.55 mg/dl Est Glomerular > 60 mL/min Filtrat Rate mL/min Glucose Level 120 mg/dl Calcium Level 9.3 mg/dl Total Bilirubin 1.0 mg/dl Direct Bilirubin 0.00 mg/dl Indirect 1.0 mg/dl Bilirubin Aspartate Amino 37 IU/L Transf (AST/SGOT) Alanine 36 IU/L Aminotransferase (ALT/SGPT) Alkaline 83 IU/L Phosphatase Troponin I < 0.012 ng/ml Total Protein 8.3 g/dl Albumin 4.2 g/dl Globulin 4.10 g/dl Albumin/Globulin 1.02 Ratio Lipase 59 U/L POC Beta HCG, NEGATIVE Qualitative POC Venous 0.3 mmol/L 0.6 mmol/L Lactate Current Medications Medications Dose Sig/Ruth Start Time Status Last (Trade) Ordered Route PRN Stop Time Admin Dose Reason Admin Sodium 1,000 ml @ Q1H STAT 01/04/19 DC 01/04/19 Chloride 1,000 mls/hr IV 16:22 16:53 01/04/19 17:30 Morphine 4 mg ONCE STAT 01/04/19 DC 01/04/19 Sulfate IV 16:22 16:53 (morphine) 01/04/19 16:25 Famotidine 20 mg ONCE STAT 01/04/19 DC 01/04/19 (Pepcid Iv) IV 16:22 16:54 01/04/19 16:25 Ketorolac 30 mg ONCE STAT 01/04/19 DC 01/04/19 Tromethamine IV 16:22 16:54 (Toradol) 01/04/19 16:25 10 mg ONCE ONCE 01/04/19 DC 01/04/19 Metoclopramid IV 16:30 16:53 e HCl 01/04/19 16:31 (Reglan) 25 mg ONCE ONCE 01/04/19 DC 01/04/19 Diphenhydrami IV 16:30 16:53 ne HCl 01/04/19 16:31 (Benadryl) 2 mg ONCE STAT 01/04/19 DC 01/04/19 Hydromorphone IM 18:04 18:15 HCl 01/04/19 18:08 (Dilaudid) Procedures/MDM ED course includes a thorough examination and history. Medications: IV NS, famotidine, morphine, ketorolac, Reglan, diphenhydramine Imaging: -- Labs: CBC, CMP, lipase, urinalysis, urine , lactate, troponin Patient reassessment at 1800: Patient asleep upon my arrival to room, no physical signs of pain. Patient reports pain was previously 10/10, now currently 7/10, no nausea or vomiting present. Orders placed for IM hydromorphone before discharge. Low suspicion for life-threatening medical emergency. Low suspicion for acute abdominal emergency. Low suspicion for infectious process, patient is afebrile without leukocytosis to or neutrophilia. Patient's lipase has decreased since her last visit from the ER are a few days ago. Patient's urinary tract infection appears to be resolving. Patient presenting with constellation of symptoms likely representing epigastric pain likely related to GERD as characterized by history, physical exam findings, lab findings. CBC: no e/o of systemic infection or severe anemia. CMP: no e/o severe acidosis, alkalosis, renal failure, diabetic ketoacidosis, liver disease. Troponin negative. Lipase within normal limits. Lactate within normal limits. Urine negative. Urinalysis positive for trace ketones, 2+-year-urobilinogen, few bacteria, 1+ protein Patient reassessment 1830: Patient hemodynamically stable. Decrease in pain after hydromorphone administration. No respiratory distress, otherwise relatively well appearing and nontoxic. Disposition given. Patient educated on diagnoses, prescriptions, follow-up care, return precautions. Strict return precautions given for worsening condition; questions answered discharge. Disposition for discharge with followup in 2 days with PCP/clinic. Departure Diagnosis: Primary Impression: Epigastric pain Additional Impressions: Nausea History of pancreatitis Condition: Stable Patient Instructions: Nausea, Gerd (Adult), Epigastric Pain (Uncertain Cause) Referrals: [facility] YOU HAVE RECEIVED A MEDICAL SCREENING EXAM AND THE RESULTS INDICATE THAT YOU DO NOT HAVE A CONDITION THAT REQUIRES URGENT TREATMENT IN THE EMERGENCY DEPARTMENT. FURTHER EVALUATION AND TREATMENT OF YOUR CONDITION CAN WAIT UNTIL YOU ARE SEEN IN YOUR DOCTORS OFFICE WITHIN THE NEXT 1-2 DAYS. IT IS YOUR RESPONSIBILITY TO MAKE AN APPOINTMENT FOR FOLOW-UP CARE. IF YOU HAVE A PRIMARY DOCTOR --you should call your primary doctor and schedule an appointment IF YOU DO NOT HAVE A PRIMARY DOCTOR YOU CAN CALL OUR PHYSICIAN REFERRAL HOTLINE AT IF YOU CAN NOT AFFORD TO SEE A PHYSICIAN YOU CAN CHOSE FROM THE FOLLOWING [facility] [address] [facility] [address] [facility] [facility] [address] [facility] [address] [facility] [address] [facility] [address] [facility]. [facility] YOU HAVE RECEIVED A MEDICAL SCREENING EXAM AND THE RESULTS INDICATE THAT YOU DO NOT HAVE A CONDITION THAT REQUIRES URGENT TREATMENT IN THE EMERGENCY DEPARTMENT. FURTHER EVALUATION AND TREATMENT OF YOUR CONDITION CAN WAIT UNTIL YOU ARE SEEN IN YOUR DOCTORS OFFICE WITHIN THE NEXT 1-2 DAYS. IT IS YOUR RESPONSIBILITY TO MAKE AN APPOINTMENT FOR FOLOW-UP CARE. IF YOU HAVE A PRIMARY DOCTOR --you should call your primary doctor and schedule and appointment IF YOU DO NOT HAVE A PRIMARY DOCTOR YOU CAN CALL OUR PHYSICIAN REFERRAL HOTLINE AT . IF YOU CAN NOT AFFORD TO SEE A PHYSICIAN YOU CAN CHOSE FROM THE FOLLOWING [facility] INSTITUTIONS: [facility] [address] [place] [address] [facility] [address] [place] [address] [facility] [address] [place] [address] Additional Instructions: Thank you very much for allowing us to participate in your care. Your health and safety is our top priority at [facility]. It is important to read all discharge instructions and education provided in your discharge packet. Call your primary care doctor TOMORROW for an appointment during the next 2-4 days and bring all the information and medications prescribed. Have prescriptions filled and follow precisely the directions on the label. -Cephalexin is an antibiotic; take this medication every day as listed on your prescription. You must complete the entire course of treatment that is listed on your prescription this is very important because it takes a certain number of days to kill the bacteria that is causing the infection. --Famotidine AND Omeprazole is a medication that will help with acid reflux; take this medication as prescribed for the next 1 to 2 weeks with lunch and dinner. Report to your primary care doctor if the nausea is no longer present w ith this medication. If so, it is highly likely that your acid reflux is causing your nausea. -Reglan is a medication for nausea/vomitting; take this medication as needed for nausea/vomiting. *The same medication we gave you during today's visit by IV* -Promethazine is a medication for nausea/vomitting; take this medication as needed for persistent nausea/vomiting/decreased appetite. *This medication may cause drowsiness, take this as a step up if Reglan does not work* -Tramadol is an opiate pain medication; take this medication as needed for moderate to severe pain. No operating of heavy machinery while taking this medication. It may cause drowsiness. If the symptoms get worse and your provider is unavailable, return to the Emergency Department immediately. MARIANN BOLDEN NP Jan 04, 2019 21:14
== END 2019-01-04 18:36 | disposition home or self-care (01) ==
LOC: FTE 15:43
DX: R10.13 Epigastric pain (principal); I10 Essential (primary) hypertension; E11.9 Type 2 diabetes mellitus without complications; R11.0 Nausea; Z79.4 Long term (current) use of insulin; Z87.19 Personal history of other diseases of the digestive system
CPT/HCPCS: 36415; 80053; 81001; 81025; 83605; 83690; 84484; 85025; 96372; 96374; 96375; J1170; J1200; J1885; J2270; J2765; J7030; Z7502; Z7610

== ENCOUNTER 2019-04-07 16:19 | Emergency (ER) | payer OTHER ==
[~2019-04-07] VITALS: Ht 172.7 cm; Wt 100.0 kg
[~2019-04-07 16:19] MED LIST changes: +BEN50 PO; +CEPH-443 PO; +METO10TA92 PO; +NAR2I NS; +OMEP40CA38 PO; +OXYC-279 PO; +PRED20TA PO; +PROM25TA14 PO; +RANI-535 PO; +TRAM50TA2 PO
[2019-04-07 16:36] VITALS: Ht 172.7 cm; Wt 100.0 kg
[2019-04-07] MEDS ORDERED: KETOROLAC 30 MG INJ IM STA (17:41)
[2019-04-07] MEDS ORDERED: ONDANSETRON 4 MG INJ IM STA (17:41)
[2019-04-07 19:43] VITALS: BP 117/64; PULSE 74; RESP 20
== END 2019-04-07 19:42 | disposition home or self-care (01) ==
LOC: FTE 16:19
DX: K21.9 Gastro-esophageal reflux disease without esophagitis (principal); I10 Essential (primary) hypertension; E11.9 Type 2 diabetes mellitus without complications; Z79.84 Long term (current) use of oral hypoglycemic drugs
CPT/HCPCS: 36415; 76705; 80053; 81001; 81025; 83690; 84703; 85025; 96372; J1885; J2405; Z7502

== ENCOUNTER 2019-05-22 17:49 | Emergency (ER) | payer OTHER ==
[~2019-05-22] VITALS: Wt 89.0 kg
[2019-05-22] MEDS ORDERED: ONDANSETRON 4 MG INJ IV STA ×2 (19:14→20:57)
[2019-05-22] MEDS ORDERED: SOD CHLORIDE 0.9% 1,000 ML IV STA ×2 (19:14→21:06)
[2019-05-22] MEDS ORDERED: HYDROmorphONE 1 MG/ML SYG IV STA (19:14)
[2019-05-22] MEDS ORDERED: HYDROmorphONE 0.5 MG/0.5 ML SYG IV STA (20:57)
[2019-05-22 23:02] VITALS: BP 127/62; PULSE 92; RESP 20
== END 2019-05-22 23:03 | disposition home or self-care (01) ==
LOC: FTE 17:49
DX: K85.90 Acute pancreatitis without necrosis or infection, unspecified (principal); F17.210 Nicotine dependence, cigarettes, uncomplicated; Z79.84 Long term (current) use of oral hypoglycemic drugs
CPT/HCPCS: 36415; 74176; 80053; 81001; 83690; 84703; 85025; 96374; 96375; 96376; J1170; J2405; J7030; Z7502